=== PATIENT | female | born 1930 | race Caucasian/White ===

== ENCOUNTER → 2016-04-19 | Outpatient (CLI) | payer MEDICARE ==
[2016-04-19 11:43] LABS: Appearance,Urine Clear (Clear); Bilirubin,Urine Negative (Negative); Glucose,Urine (UA) Negative (Negative); Ketones,Urine Negative (Negative); Leukocyte Esterase,Urine Large (Negative); Mucus,Urine Rare /hpf; Nitrite,Urine Negative (Negative); PH, Urine 5.5 (5.0-8.0); Particle Count 2296; Protein,Urine Negative (Negative); Specific Gravity,Urine 1.011 (1.001-1.035); Squamous Epithelial Cell,Urine <1 /hpf (0-4); UA Billing (MACRO vs. MICRO) MICRO; Urobilinogen,Urine <2.0 mg/dL (<2.0); WBC,Urine 14 /hpf (0-5)
[2016-04-19 12:08] LABS: Calcium 9.9 mg/dL (8.4-10.2); Potassium 4.4 mmol/L (3.5-5.1); Uric Acid 6.9 mg/dL (3.7-7.4)
[2016-04-19 14:31] LABS: Aty Lym Flag Slight; CHCM 32.3; HDW 2.53; HGB 13.8 gm/dL (11.4-16.0); MCH 33.9 pg (25.0-35.0); MCHC 32.1 g/dL (31.0-37.0); MCV 105.6 fL (80.0-100.0); Macrocytosis Moderate; Mean Platelet Volume 12.5; RBC 4.07 m/uL (3.80-5.40); RDW 15.6 % (11.5-15.5); WBC (Perox) 9.23
[2016-04-19 15:17] LABS: Add Differential Manual Differential
[2016-04-19 15:20] LABS: Manual Review Performed; Nucleated Red Blood Cells 0 /100 WBC (0-0); Total Cells Counted 100
[2016-04-19 15:21] LABS: Large Platelets Present
== END | disposition home or self-care (01) ==
LOC: LABWHC1 10:41
PROVIDERS: ATTEND Nurse Practitioner Family
DX: N17.9 Acute kidney failure, unspecified (principal); N39.0 Urinary tract infection, site not specified; M10.9 Gout, unspecified
CPT/HCPCS: 36415; 80048; 81001; 82306; 84550; 85025

== ENCOUNTER → 2016-08-23 | Outpatient (CLI) | payer MEDICARE ==
[2016-08-23 12:58] LABS: Anisocytosis Slight; HGB 14.4 gm/dL (11.4-16.0); Macrocytosis Marked; Mean Platelet Volume 10.4; Monocytes % (A) 7 %; RBC 4.25 m/uL (3.80-5.40); RDW 16.4 % (11.5-15.5)
[2016-08-23 13:10] LABS: Calcium 9.8 mg/dL (8.4-10.2); Phosphorous 4.1 mg/dL (2.5-4.5); Potassium 4.4 mmol/L (3.5-5.1); Uric Acid 7.7 mg/dL (3.7-7.4)
[2016-08-23 13:19] LABS: % Iron Saturation 41.2 % (20-50)
[2016-08-23 13:27] LABS: Basophils # (A) 0.1 k/uL (0-0.2); Basophils % (A) 1 %; CH 34.9; CHCM 32.7; Eosinophils # (A) 0.7 k/uL (0-0.7); Eosinophils % (A) 8 %; HCT 45.6 % (34.0-46.0); HDW 2.57; Luc % (Auto) 3; Lymphocytes # (A) 2.5 k/uL (1.0-4.8); Lymphocytes % (A) 27 %; MCH 33.9 pg (25.0-35.0); MCHC 31.7 g/dL (31.0-37.0); MCV 107.1 fL (80.0-100.0); Monocytes # (A) 0.6 k/uL (0-1.0); Neutrophils % (A) 54 %; WBC 9.2 k/uL (3.8-10.6); WBC (Perox) 9.11
[2016-08-23 13:50] LABS: Manual Review Performed
== END | disposition home or self-care (01) ==
LOC: LABWHC1 11:42
PROVIDERS: ATTEND Nurse Practitioner Family
DX: D64.9 Anemia, unspecified (principal); N18.3 Chronic kidney disease, stage 3 (moderate); E55.9 Vitamin D deficiency, unspecified; M10.9 Gout, unspecified; E21.3 Hyperparathyroidism, unspecified; R80.9 Proteinuria, unspecified
CPT/HCPCS: 36415; 80048; 82306; 82728; 83540; 83550; 83735; 83970; 84100; 84550; 85025

== ENCOUNTER → 2016-08-30 | Outpatient (CLI) | payer MEDICARE ==
[2016-08-30 11:50] LABS: Creatinine,Urine Random 68.6 mg/dL
== END ==
LOC: LABWHC1 11:15
PROVIDERS: ATTEND Nurse Practitioner Family
DX: N18.3 Chronic kidney disease, stage 3 (moderate) (principal); D64.9 Anemia, unspecified; E55.9 Vitamin D deficiency, unspecified; M10.9 Gout, unspecified; R80.9 Proteinuria, unspecified; E21.3 Hyperparathyroidism, unspecified
CPT/HCPCS: 82570; 84156

== ENCOUNTER 2016-09-26 11:42 | Inpatient (IN) | payer MEDICARE ==
[2016-09-26] MEDS ORDERED: DILTIAZEM 5 MG/ML 5 ML VIAL IVP STA (11:52)
[2016-09-26] MEDS ORDERED: SODIUM CHLORIDE 0.9% 1,000 ML IV STA (11:52)
--- NOTE | 2016-09-26 12:03 | ED ---
General Adult HPI - General Chief complaint: Arrhythmia/Palpitations Stated complaint: headache,dizzy Time Seen by Provider: 09/26/16 11:51 Source: patient, family, RN notes reviewed, old records reviewed Mode of arrival: wheelchair - History of Present Illness Initial comments: This is an 86-year-old female ER for evaluation palpitations and chest pain. Patient has history of A. fib and heart disease. Patient feels like her heart is racing, does not feel like she is given a passed out. She is complaining of chest pain. Patient's heart continues to be racing, palpitations and feels her breathing or chest, does admit to increased anxiety from her daughter's recent hospital condition. Patient continues with shortness of breath. Again denies fever - Related Data Home Medications Medication Instructions Recorded Confirmed Levothyroxine Sodium [Synthroid] 50 mcg PO AC-BRKFST 05/05/14 09/26/16 Metoprolol Succinate [Toprol XL] 25 mg PO QAM 05/05/14 09/26/16 Atorvastatin Calcium [Lipitor] 40 mg PO PC-SUPPER 10/06/15 09/26/16 Rivaroxaban [Xarelto] 15 mg PO PC-SUPPER 10/06/15 09/26/16 Acetaminophen [Tylenol] 1,000 mg PO Q6H PRN 09/26/16 09/26/16 Allopurinol [Zyloprim] 100 mg PO DAILY 09/26/16 09/26/16 Chlorthalidone [Hygroton] 12.5 mg PO BID 09/26/16 09/26/16 Cholecalciferol [Vitamin D3] 2,000 unit PO DAILY 09/26/16 09/26/16 Otc Eye Moisturizing Drop 1 drop BOTH EYES TID 09/26/16 09/26/16 Otc Eye Ointment 1 applic BOTH EYES BID 09/26/16 09/26/16 cloNIDine 0.2 MG/24HR PATCH 1 patch TRANSDERM PEARSON 09/26/16 09/26/16 [Catapres-TTS] Allergies Allergy/AdvReac Type Severity Reaction Status Date / Time cephalexin monohydrate Allergy Rash/Hives Verified 09/26/16 11:48 [From Keflex] Penicillins Allergy Swelling Verified 09/26/16 11:48 sulfamethoxazole Allergy Nausea & Verified 09/26/16 11:48 [From Bactrim] Vomiting trimethoprim [From Bactrim] Allergy Nausea & Verified 09/26/16 11:48 Vomiting Review of Systems ROS Statement: Those systems with pertinent positive or pertinent negative responses have been documented in the HPI. ROS Other: All systems not noted in ROS Statement are negative. Past Medical History Past Medical History: Atrial Fibrillation, Asthma, Deep Vein Thrombosis (DVT), GERD/Reflux, Hyperlipidemia, Hypertension, Osteoarthritis (OA), Thyroid Disorder Additional Past Medical History / Comment(s): past falls, uti,hemorrhoids, hammer toes,enlarged heart, glaucoma, sees dr for rt eye (retina),seasonal allergies, ulcer 40 years ago, [place]. pts grand daughter has factor 5- pt never was tested History of Any Multi-Drug Resistant Organisms: None Reported Past Surgical History: Bladder Surgery, Tonsillectomy Additional Past Surgical History / Comment(s): blood clot removed rt leg, vein stripping, colonoscopy, bladder suspension, lashay cataracts removed Past Anesthesia/Blood Transfusion Reactions: No Reported Reaction Past Psychological History: No Psychological Hx Reported Smoking Status: Never smoker Past Alcohol Use History: None Reported Past Drug Use History: None Reported - Past Family History Mother Additional Family Medical History / Comment(s): mom in childbirth, hemmorraged... pt's granddaughter has factor five Father Family Medical History: Cancer Additional Family Medical History / Comment(s): lung cancer General Exam General appearance: alert, in no apparent distress Head exam: Present: atraumatic, normocephalic, normal inspection Eye exam: Present: normal appearance, PERRL, EOMI. Absent: scleral icterus, conjunctival injection, periorbital swelling ENT exam: Present: normal exam, mucous membranes moist Neck exam: Present: normal inspection. Absent: tenderness, meningismus, lymphadenopathy Respiratory exam: Present: normal lung sounds bilaterally. Absent: respiratory distress, wheezes, rales, rhonchi, stridor Cardiovascular Exam: Present: tachycardia, irregular rhythm, normal heart sounds. Absent: systolic murmur, diastolic murmur, rubs, gallop, clicks GI/Abdominal exam: Present: soft, normal bowel sounds. Absent: distended, tenderness, guarding, rebound, rigid Extremities exam: Present: normal inspection, full ROM, normal capillary refill. Absent: tenderness, pedal edema, joint swelling, calf tenderness Back exam: Present: normal inspection Neurological exam: Present: alert, oriented X3, CN II-XII intact Psychiatric exam: Present: normal affect, normal mood Skin exam: Present: warm, dry, intact, normal color. Absent: rash Course Vital Signs 09/26/16 09/26/16 11:44 12:43 Temperature 98.4 F Pulse Rate 123 H 111 H Respiratory 20 18 Rate Blood Pressure 145/73 158/90 O2 Sat by Pulse 99 97 Oximetry - Reevaluation(s) Reevaluation #1: 09/26/16 13:21 Patient feels better with her control though still feel short of breath and feels like her heart is beating hard EKG Findings - EKG Comments: EKG Findings:: EKG shows A. fib with RVR at 104, QRS 86, QTC 407 Medical Decision Making - Medical Decision Making [id number] ER for evaluation regarding chest pain. Patient to be admitted for chest pain observation, cardiac and trending of troponins. Patient also had A. fib with RVR will accomplish rate control, patient is already on anticoagulation, patient also with pneumonia on x-ray which we'll treat - Lab Data Result diagrams: 09/26/16 12:06 09/26/16 12:06 Lab Results 09/26/16 09/26/16 09/26/16 Range/Units 12:06 12:06 12:06 WBC 12.3 H (3.8-10.6) k/uL RBC 4.38 (3.80-5.40) m/uL Hgb 15.3 (11.4-16.0) gm/dL Hct 44.6 (34.0-46.0) % MCV 101.8 H D (80.0-100.0) fL MCH 34.9 (25.0-35.0) pg MCHC 34.3 (31.0-37.0) g/dL RDW 16.0 H (11.5-15.5) % Plt Count 264 (150-450) k/uL Neutrophils % 70 % Lymphocytes % 18 % Monocytes % 7 % Eosinophils % 3 % Basophils % 0 % Neutrophils # 8.5 H (1.3-7.7) k/uL Lymphocytes # 2.3 (1.0-4.8) k/uL Monocytes # 0.8 (0-1.0) k/uL Eosinophils # 0.4 (0-0.7) k/uL Basophils # 0.1 (0-0.2) k/uL Macrocytosis Slight PT (9.0-12.0) sec INR (<1.2) APTT (22.0-30.0) sec Sodium 140 (137-145) mmol/L Potassium 4.0 (3.5-5.1) mmol/L Chloride 104 (98-107) mmol/L Carbon Dioxide 24 (22-30) mmol/L Anion Gap 12 mmol/L BUN 27 H (7-17) mg/dL Creatinine 1.15 H (0.52-1.04) mg/dL Est GFR (MDRD) Af Amer 54 (>60 ml/min/1.73 sqM) Est GFR (MDRD) Non-Af 45 (>60 ml/min/1.73 sqM) Glucose 132 H (74-99) mg/dL Calcium 10.3 H (8.4-10.2) mg/dL Phosphorus 2.1 L (2.5-4.5) mg/dL Magnesium 1.8 (1.6-2.3) mg/dL Total Bilirubin 0.8 (0.2-1.3) mg/dL AST 26 (14-36) U/L ALT 39 (9-52) U/L Alkaline Phosphatase 114 (38-126) U/L Total Creatine Kinase 35 (30-135) U/L CK-MB (CK-2) 0.5 (0.0-2.4) ng/mL CK-MB (CK-2) Rel Index 1.4 Troponin I <0.012 (0.000-0.034) ng/mL Total Protein 8.2 (6.3-8.2) g/dL Albumin 4.5 (3.5-5.0) g/dL 09/26/16 Range/Units 12:06 WBC (3.8-10.6) k/uL RBC (3.80-5.40) m/uL Hgb (11.4-16.0) gm/dL Hct (34.0-46.0) % MCV (80.0-100.0) fL MCH (25.0-35.0) pg MCHC (31.0-37.0) g/dL RDW (11.5-15.5) % Plt Count (150-450) k/uL Neutrophils % % Lymphocytes % % Monocytes % % Eosinophils % % Basophils % % Neutrophils # (1.3-7.7) k/uL Lymphocytes # (1.0-4.8) k/uL Monocytes # (0-1.0) k/uL Eosinophils # (0-0.7) k/uL Basophils # (0-0.2) k/uL Macrocytosis PT 10.9 (9.0-12.0) sec INR 1.1 (<1.2) APTT 24.0 (22.0-30.0) sec Sodium (137-145) mmol/L Potassium (3.5-5.1) mmol/L Chloride (98-107) mmol/L Carbon Dioxide (22-30) mmol/L Anion Gap mmol/L BUN (7-17) mg/dL Creatinine (0.52-1.04) mg/dL Est GFR (MDRD) Af Amer (>60 ml/min/1.73 sqM) Est GFR (MDRD) Non-Af (>60 ml/min/1.73 sqM) Glucose (74-99) mg/dL Calcium (8.4-10.2) mg/dL Phosphorus (2.5-4.5) mg/dL Magnesium (1.6-2.3) mg/dL Total Bilirubin (0.2-1.3) mg/dL AST (14-36) U/L ALT (9-52) U/L Alkaline Phosphatase (38-126) U/L Total Creatine Kinase (30-135) U/L CK-MB (CK-2) (0.0-2.4) ng/mL CK-MB (CK-2) Rel Index Troponin I (0.000-0.034) ng/mL Total Protein (6.3-8.2) g/dL Albumin (3.5-5.0) g/dL - Radiology Data Radiology results: report reviewed (Chest x-ray is positive for likely pneumonia ), image reviewed Disposition Clinical Impression: Pre-syncope, Atrial fibrillation with RVR, Community acquired bacterial pneumonia Disposition: ADMITTED IP TO THIS HOSP Condition: Fair Referrals: Melissa Song MD [Primary Care Provider] - 1-2 days
[2016-09-26 12:29] LABS: Basophils # (A) 0.1 k/uL (0-0.2); Basophils % (A) 0 %; CHCM 33.8; Macrocytosis Slight; Monocytes % (A) 7 %
[2016-09-26 12:30] LABS: INR 1.1 (<1.2); Prothrombin Time 10.9 sec (9.0-12.0)
[2016-09-26 12:33] LABS: Calcium 10.3 mg/dL (8.4-10.2); Magnesium 1.8 mg/dL (1.6-2.3); Phosphorous 2.1 mg/dL (2.5-4.5); Total Bilirubin 0.8 mg/dL (0.2-1.3); Total Protein 8.2 g/dL (6.3-8.2)
--- NOTE | 2016-09-26 12:33 | XR ---
EXAMINATION TYPE: XR chest 2V DATE OF EXAM: 09/26/2016 COMPARISON: 10/06/2015 TECHNIQUE: PA and lateral views submitted. HISTORY: Dizziness weakness FINDINGS: The lungs are clear and there is no pneumothorax, pleural effusion, or focal pneumonia. Heart is en larged. There is prominence of the hilum bilaterally which may related the pulmonary arteries. There is left lower lobe consolidation and small effusion. Arthropathy of the shoulders. Mild central venou s congestion not excluded. IMPRESSION: 1. Left lower lobe consolidation with tiny effusion. The heart is enlarged and there is question bila teral hilar enlargement. Correlate for mild central venous congestion. Follow-up CT scan could be obt ained as warranted..
[2016-09-26 12:41] LABS: CH 34.3; Eosinophils # (A) 0.4 k/uL (0-0.7); Eosinophils % (A) 3 %; HCT 44.6 % (34.0-46.0); HDW 2.68; HGB 15.3 gm/dL (11.4-16.0); Luc # (Auto) 0.28; Luc % (Auto) 2; Lymphocytes # (A) 2.3 k/uL (1.0-4.8); Lymphocytes % (A) 18 %; MCH 34.9 pg (25.0-35.0); MCHC 34.3 g/dL (31.0-37.0); Monocytes # (A) 0.8 k/uL (0-1.0); Neutrophils # (A) 8.5 k/uL (1.3-7.7); Neutrophils % (A) 70 %; RBC 4.38 m/uL (3.80-5.40); WBC 12.3 k/uL (3.8-10.6); WBC (Perox) 12.05
[2016-09-26 12:44] LABS: MCV 101.8 fL (80.0-100.0)
[2016-09-26 12:58] LABS: Creatine Kinase 35 U/L (30-135)
[2016-09-26] MEDS ORDERED: LEVOFLOXACIN 750MG-D5W PMX 750 MG in DEXTROSE/WATER 1 150ML.BAG IVPB STA (13:02)
[2016-09-26 13:11] LABS: Creatine Kinase MB 0.5 ng/mL (0.0-2.4); Troponin I <0.012 ng/mL (0.000-0.034)
[2016-09-26] MEDS ORDERED: PNEUMONIA PROTOCOL UTILIZED 1 EACH MISC PO PRN (13:16)
[2016-09-26] MEDS ORDERED: DILTIAZEM 125 MG in SODIUM CHLORIDE 0.9% 100 ML IV ONE (13:16)
[2016-09-26] MEDS ORDERED: IPRATROPIUM-ALBUTEROL 3 ML NEB INHALATION PRN (13:16)
[2016-09-26] MEDS ORDERED: NITROGLYCERIN SL TABS 0.4 MG TAB SUBLINGUAL PRN (13:16)
[2016-09-26 13:48] LABS: Appearance,Urine Clear (Clear); Bilirubin,Urine Negative (Negative); Glucose,Urine (UA) Negative (Negative); Ketones,Urine Negative (Negative); Leukocyte Esterase,Urine Moderate (Negative); Mucus,Urine Rare /hpf; Nitrite,Urine Negative (Negative); Particle Count 1674; Protein,Urine Negative (Negative); RBC,Urine <1 /hpf (0-5); Specific Gravity,Urine 1.008 (1.001-1.035); UA Billing (MACRO vs. MICRO) MICRO; Urobilinogen,Urine <2.0 mg/dL (<2.0); WBC,Urine 4 /hpf (0-5)
[2016-09-26] MEDS: SODIUM CHLORIDE 0.9% 1,000 ML IV SCH (14:34)
[2016-09-26 19:52] LABS: Creatine Kinase 28 U/L (30-135)
[2016-09-26 20:06] LABS: Creatine Kinase MB 0.5 ng/mL (0.0-2.4); Troponin I <0.012 ng/mL (0.000-0.034)
[2016-09-26] MEDS: ARTIFICIAL TEARS-HYPROMELLOSE DROPS 15 ML BTL BOTH EYES SCH (20:53)
[2016-09-26] MEDS: ARTIFICIAL TEARS OINTMENT 3.5 GM TUBE BOTH EYES SCH (20:54)
[2016-09-26] MEDS: amLODIPine 5 MG TAB PO SCH (20:54)
[2016-09-26] MEDS: CHLORTHALIDONE 25 MG TAB PO SCH (20:54)
[2016-09-26] MEDS: ACETAMINOPHEN TAB 500 MG TAB PO PRN (23:12)
[2016-09-27 00:48] LABS: Creatine Kinase 139 U/L (30-135)
[2016-09-27] MEDS: SODIUM CHLORIDE 0.9% 1,000 ML IV SCH ×3 (00:48→19:58)
[2016-09-27 01:02] LABS: Creatine Kinase MB 2.1 ng/mL (0.0-2.4); Troponin I <0.012 ng/mL (0.000-0.034)
[2016-09-27] MEDS: LEVOTHYROXINE 50 MCG TAB PO SCH (06:48)
--- NOTE | 2016-09-27 07:13 | XR ---
EXAMINATION TYPE: XR chest 2V DATE OF EXAM: 09/27/2016 COMPARISON: 09/26/2016 HISTORY: Shortness of breath TECHNIQUE: Frontal and lateral views of the chest are obtained. FINDINGS: Scattered senescent parenchymal changes noted. Hyperinflation compatible with COPD. No evidence for infiltrate. No evidence for atelectasis. Heart size is stable. Mediastinal structures are stable and grossly unremarkable. No evidence for hilar prominence. Degenerative changes dorsal spine. IMPRESSION: 1. No evidence for acute pulmonary disease.
[2016-09-27] MEDS: amLODIPine 5 MG TAB PO SCH ×2 (07:44→19:57)
[2016-09-27] MEDS: ASPIRIN 325 MG TAB PO SCH (07:45)
[2016-09-27] MEDS: ALLOPURINOL 100 MG TAB PO SCH (07:45)
[2016-09-27] MEDS: ARTIFICIAL TEARS OINTMENT 3.5 GM TUBE BOTH EYES SCH ×2 (07:45→19:58)
[2016-09-27] MEDS: ARTIFICIAL TEARS-HYPROMELLOSE DROPS 15 ML BTL BOTH EYES SCH ×3 (07:45→19:56)
[2016-09-27] MEDS: CHLORTHALIDONE 25 MG TAB PO SCH ×2 (07:45→19:57)
[2016-09-27 08:51] LABS: Anisocytosis Slight; Basophils # (A) 0.1 k/uL (0-0.2); Basophils % (A) 1 %; CH 34.6; CHCM 32.8; Eosinophils # (A) 0.5 k/uL (0-0.7); Eosinophils % (A) 6 %; HCT 40.7 % (34.0-46.0); HGB 13.5 gm/dL (11.4-16.0); Luc # (Auto) 0.16; Luc % (Auto) 2; Lymphocytes # (A) 1.9 k/uL (1.0-4.8); Lymphocytes % (A) 21 %; MCHC 33.1 g/dL (31.0-37.0); MCV 105.7 fL (80.0-100.0); Macrocytosis Moderate; Mean Platelet Volume 11.8; Monocytes # (A) 0.8 k/uL (0-1.0); Monocytes % (A) 9 %; Neutrophils # (A) 5.5 k/uL (1.3-7.7); Neutrophils % (A) 62 %; RBC 3.85 m/uL (3.80-5.40); RDW 16.4 % (11.5-15.5); WBC 8.9 k/uL (3.8-10.6); WBC (Perox) 9.02
[2016-09-27 09:04] LABS: Calcium 9.2 mg/dL (8.4-10.2); Total Bilirubin 0.7 mg/dL (0.2-1.3); Total Protein 6.3 g/dL (6.3-8.2)
--- NOTE | 2016-09-27 09:31 | P.HPIM ---
History of Present Illness H&P Date: 09/27/16 Chief Complaint: Dizziness This is a 86-year-old female, a patient of Dr. Song. She has a known past medical history of atrial fibrillation and is on Xarelto for anticoagulation. She also has a history of hypothyroidism, hyperlipidemia, hypertension, asthma and lower extremity DVT. Patient reports that she's been having dizziness and racing heart and that brought her into the emergency room. Her symptoms started Saturday night patient was complaining of dizziness went to sleep for the evening woke again on Saturday morning having dizziness and symptoms of racing heart. Her daughter talked her into coming into the emergency room. Patient was found to have atrial fibrillation with rapid ventricular response. Her heart rate got as high as 123. She was started on a Cardizem drip. And continued on her Xarelto for anticoagulation. Heart rate is now controlled in the 70s and 80s. Cardiology is consulted. She was admitted to the sixth floor. Initial chest x-ray had showed a left lower lobe consolidation with tiny effusion. She was started on Levaquin for possible pneumonia. Chest x- ray from this morning was negative. Her white count was elevated initially at 12.3. Troponins are negative 3 sets. Urinalysis is slightly dirty awaiting urine culture. Patient is a segment for any urinary symptoms. Patient denies any fevers chills or sweats. Denies any cough. Denies any nausea or vomiting. Denies any chest pain. Does admit to having some shortness of breath but her heart was beating fast. Denies any burning with urination. As noted that last week patient was off of her Xarelto for about 3 days for an eye procedure. Review of Systems Please refer to HPI otherwise unremarkable Past Medical History Past Medical History: Atrial Fibrillation, Asthma, Deep Vein Thrombosis (DVT), GERD/Reflux, Hyperlipidemia, Hypertension, Osteoarthritis (OA), Thyroid Disorder Additional Past Medical History / Comment(s): past falls, uti,hemorrhoids, hammer toes,enlarged heart, glaucoma, sees for rt eye (retina),seasonal allergies, ulcer 40 years ago, [place]. pts grand daughter has factor 5- pt never was tested, uti,djd. History of Any Multi-Drug Resistant Organisms: None Reported Past Surgical History: Bladder Surgery, Tonsillectomy Additional Past Surgical History / Comment(s): blood clot removed rt leg, vein stripping, colonoscopy, bladder suspension, lashay cataracts removed, lashay eye lift sx Past Anesthesia/Blood Transfusion Reactions: No Reported Reaction Smoking Status: Never smoker - Past Family History Mother Additional Family Medical History / Comment(s): mom in childbirth, hemmorraged... pt's granddaughter has factor five Father Family Medical History: Cancer Additional Family Medical History / Comment(s): lung cancer Medications and Allergies Home Medications Medication Instructions Recorded Confirmed Type Levothyroxine Sodium [Synthroid] 50 mcg PO AC-BRKFST 05/05/14 09/26/16 History Atorvastatin Calcium [Lipitor] 40 mg PO PC-SUPPER 10/06/15 09/26/16 History Rivaroxaban [Xarelto] 15 mg PO PC-SUPPER 10/06/15 09/26/16 History Acetaminophen [Tylenol] 1,000 mg PO Q6H PRN 09/26/16 09/26/16 History Allopurinol [Zyloprim] 100 mg PO DAILY 09/26/16 09/26/16 History Chlorthalidone [Hygroton] 12.5 mg PO BID 09/26/16 09/26/16 History Cholecalciferol [Vitamin D3] 2,000 unit PO DAILY 09/26/16 09/26/16 History Otc Eye Moisturizing Drop 1 drop BOTH EYES TID 09/26/16 09/26/16 History Otc Eye Ointment 1 applic BOTH EYES BID 09/26/16 09/26/16 History amLODIPine [Norvasc] 5 mg PO BID 09/26/16 09/26/16 History cloNIDine 0.2 MG/24HR PATCH 1 patch TRANSDERM PEARSON 09/26/16 09/26/16 History [Catapres-TTS] Allergies Allergy/AdvReac Type Severity Reaction Status Date / Time cephalexin monohydrate Allergy Rash/Hives Verified 09/26/16 11:48 [From Keflex] Penicillins Allergy Swelling Verified 09/26/16 11:48 sulfamethoxazole Allergy Nausea & Verified 09/26/16 11:48 [From Bactrim] Vomiting trimethoprim [From Bactrim] Allergy Nausea & Verified 09/26/16 11:48 Vomiting Physical Exam Vitals: Vital Signs Temp Pulse Pulse Resp BP BP Pulse Ox 09/27/16 08:00 97.9 F 95 16 158/74 98 09/27/16 04:00 90 16 156/67 95 09/27/16 00:00 98.0 F 87 16 167/67 98 09/26/16 20:00 95 16 151/70 99 09/26/16 16:00 96.1 F L 100 18 144/68 98 09/26/16 15:59 96.1 F L 100 16 144/68 98 09/26/16 14:31 83 18 159/73 97 09/26/16 14:01 92 18 158/70 98 09/26/16 13:55 100 18 162/92 97 09/26/16 12:43 111 H 18 158/90 97 09/26/16 11:44 98.4 F 123 H 20 145/73 99 Intake and Output 09/26/16 09/27/16 09/27/16 22:59 06:59 14:59 Intake Total 236 800 Balance 236 800 Intake: IV 800 Sodium Chloride 0.9% 1, 800 000 ml @ 100 mls/hr IV . Q10H DENAE Rx#:[id number] Oral 236 Head normocephalic Neck supple Lungs clear to auscultation bilaterally no wheezing or crackles Heart irregular rhythm. A. fib on monitor Abdomen is soft nontender nondistended positive bowel sounds no hepatosplenomegaly Extremities no edema Neuro alert and orientated to 3 Results CBC & Chem 7: 09/27/16 06:04 09/26/16 12:06 Labs: Abnormal Lab Results - Last 24 Hours (Table) 09/26/16 09/26/16 09/26/16 Range/Units 12:06 12:06 12:06 WBC 12.3 H (3.8-10.6) k/uL MCV 101.8 H D (80.0-100.0) fL RDW 16.0 H (11.5-15.5) % Neutrophils # 8.5 H (1.3-7.7) k/uL BUN 27 H (7-17) mg/dL Creatinine 1.15 H (0.52-1.04) mg/dL Glucose 132 H (74-99) mg/dL Calcium 10.3 H (8.4-10.2) mg/dL Phosphorus 2.1 L (2.5-4.5) mg/dL Total Creatine Kinase (30-135) U/L Ur Leukocyte Esterase Moderate H (Negative) Urine Mucus Rare H (None) /hpf 09/26/16 09/27/16 09/27/16 Range/Units 19:01 00:07 06:04 WBC (3.8-10.6) k/uL MCV 105.7 H (80.0-100.0) fL RDW 16.4 H (11.5-15.5) % Neutrophils # (1.3-7.7) k/uL BUN (7-17) mg/dL Creatinine (0.52-1.04) mg/dL Glucose (74-99) mg/dL Calcium (8.4-10.2) mg/dL Phosphorus (2.5-4.5) mg/dL Total Creatine Kinase 28 L 139 H (30-135) U/L Ur Leukocyte Esterase (Negative) Urine Mucus (None) /hpf Microbiology - Last 24 Hours (Table) 09/26/16 12:06 Urine Culture - Preliminary Urine,Voided Thrombosis Risk Factor Assmnt - Choose All That Apply Any of the Below Risk Factors Present?: Yes Each Factor Represents 1 point: Obesity (BMI >25), Serious lung disease incl. pneumonia (< 1month) Other Risk Factors: Yes Each Risk Factor Represents 3 Points: Age 75 years or older, History of DVT/PE Other congenital or acquired thrombophilia - If yes, enter type in comment: No Thrombosis Risk Factor Assessment Total Risk Factor Score: 8 Thrombosis Risk Factor Assessment Level: High Risk Assessment and Plan Plan: 1. Atrial fibrillation with rapid ventricular response: Patient has history of atrial fibrillation. Continue the Xarelto for anticoagulation. She's been started on Cardizem drip for rate control. Cardiology has been consulted. Check thyroid levels 2. Possible community-acquired pneumonia: Patient started on Levaquin. Initial chest x-ray had shown a left lower lobe consolidation with tiny effusion. Repeat chest x-ray for today is negative. White count has normalized 3. Hypothyroidism continue Synthroid. Check thyroid levels 4. Essential hypertension: Blood pressure stable. Continue Norvasc and clonidine 5. History of chronic kidney disease stage IIIB. Follows with nephrology outpatient 6. Hyperlipidemia GI prophylaxis Pepcid and DVT prophylaxis Xarelto Time with Patient: Greater than 30 (Greater than 50% of the total time spent in counseling and coordination of care.I performed an examination of the patient and discussed their management with the physician [employer]. I have reviewed the Physician [employer] Spotter's notes and agree with the documented findings and plan of care)
--- NOTE | 2016-09-27 11:46 | P.CRDCN ---
History of Present Illness Consult date: 09/27/16 Reason for Consult (text): Afib w/RVR Chief complaint: palpitations, shortness of breath History of present illness: This is a pleasant 86-year-old female patient who follows with Dr. Faulkner. She has a known history of atrial fibrillation, hypertension and hyperlipidemia. Presented to the emergency department with complaints of feeling her heart racing, palpitations and shortness of breath. She was found to be in atrial fibrillation with rapid ventricular response. She was initiated on a Cardizem drip. She was also found to have a left lower lobe consolidation with tiny effusion and elevated white count at 12.3. She was also started on IV antibiotics. She remains on Cardizem drip at 5 mg an hour with a controlled ventricular response. Upon examination, she is feeling quite a bit better. Thyroid function studies were normal this morning. She denies current complaints of shortness of breath, palpitations, dizziness, lightheadedness, chest discomfort or edema. Past Medical History Past Medical History: Atrial Fibrillation, Asthma, Deep Vein Thrombosis (DVT), GERD/Reflux, Hyperlipidemia, Hypertension, Osteoarthritis (OA), Thyroid Disorder Additional Past Medical History / Comment(s): past falls, uti,hemorrhoids, hammer toes,enlarged heart, glaucoma, sees for rt eye (retina),seasonal allergies, ulcer 40 years ago, rosecea. pts grand daughter has factor 5- pt never was tested, uti,djd. History of Any Multi-Drug Resistant Organisms: None Reported Past Surgical History: Bladder Surgery, Tonsillectomy Additional Past Surgical History / Comment(s): blood clot removed rt leg, vein stripping, colonoscopy, bladder suspension, lashay cataracts removed, lashay eye lift sx Past Anesthesia/Blood Transfusion Reactions: No Reported Reaction Smoking Status: Never smoker - Past Family History Mother Additional Family Medical History / Comment(s): mom in childbirth, hemmorraged... pt's granddaughter has factor five Father Family Medical History: Cancer Additional Family Medical History / Comment(s): lung cancer Medications and Allergies Home Medications Medication Instructions Recorded Confirmed Type Levothyroxine Sodium [Synthroid] 50 mcg PO AC-BRKFST 05/05/14 09/26/16 History Atorvastatin Calcium [Lipitor] 40 mg PO PC-SUPPER 10/06/15 09/26/16 History Rivaroxaban [Xarelto] 15 mg PO PC-SUPPER 10/06/15 09/26/16 History Acetaminophen [Tylenol] 1,000 mg PO Q6H PRN 09/26/16 09/26/16 History Allopurinol [Zyloprim] 100 mg PO DAILY 09/26/16 09/26/16 History Chlorthalidone [Hygroton] 12.5 mg PO BID 09/26/16 09/26/16 History Cholecalciferol [Vitamin D3] 2,000 unit PO DAILY 09/26/16 09/26/16 History Otc Eye Moisturizing Drop 1 drop BOTH EYES TID 09/26/16 09/26/16 History Otc Eye Ointment 1 applic BOTH EYES BID 09/26/16 09/26/16 History amLODIPine [Norvasc] 5 mg PO BID 09/26/16 09/26/16 History cloNIDine 0.2 MG/24HR PATCH 1 patch TRANSDERM PEARSON 09/26/16 09/26/16 History [Catapres-TTS] Allergies Allergy/AdvReac Type Severity Reaction Status Date / Time cephalexin monohydrate Allergy Rash/Hives Verified 09/26/16 11:48 [From Keflex] Penicillins Allergy Swelling Verified 09/26/16 11:48 sulfamethoxazole Allergy Nausea & Verified 09/26/16 11:48 [From Bactrim] Vomiting trimethoprim [From Bactrim] Allergy Nausea & Verified 09/26/16 11:48 Vomiting Physical Exam Vitals: Vital Signs Temp Pulse Pulse Resp BP BP Pulse Ox 09/27/16 08:00 97.9 F 95 16 158/74 98 09/27/16 04:00 90 16 156/67 95 09/27/16 00:00 98.0 F 87 16 167/67 98 09/26/16 20:00 95 16 151/70 99 09/26/16 16:00 96.1 F L 100 18 144/68 98 09/26/16 15:59 96.1 F L 100 16 144/68 98 09/26/16 14:31 83 18 159/73 97 09/26/16 14:01 92 18 158/70 98 09/26/16 13:55 100 18 162/92 97 09/26/16 12:43 111 H 18 158/90 97 09/26/16 11:44 98.4 F 123 H 20 145/73 99 Intake and Output 09/26/16 09/27/16 09/27/16 22:59 06:59 14:59 Intake Total 236 800 Balance 236 800 Intake: IV 800 Sodium Chloride 0.9% 1, 800 000 ml @ 100 mls/hr IV . Q10H [facility] Rx#:[id number] Oral 236 PHYSICAL EXAMINATION: HEENT: Head is atraumatic, normocephalic. Pupils equal, round. Neck is supple. There is no elevated jugular venous pressure. HEART EXAMINATION: Heart sounds irregularly irregular, S1 and S2 normal. No murmur or gallop heard. CHEST EXAMINATION: Lungs are clear to auscultation and precussion. No chest wall tenderness is noted on palpation or with deep breathing. ABDOMEN: Soft, nontender. Bowel sounds are heard. No organomegaly noted. EXTREMITIES: 2+ peripheral pulses with no evidence of peripheral edema and no calf tenderness noted. NEUROLOGIC patient is awake, alert and oriented x3. . Results 09/27/16 06:04 09/27/16 06:04 Cardiac Enzymes 09/26/16 09/26/16 09/26/16 Range/Units 12:06 12:06 19:01 AST 26 (14-36) U/L CK-MB (CK-2) 0.5 0.5 (0.0-2.4) ng/mL Troponin I <0.012 <0.012 (0.000-0.034) ng/mL 09/27/16 09/27/16 Range/Units 00:07 06:04 AST 23 (14-36) U/L CK-MB (CK-2) 2.1 (0.0-2.4) ng/mL Troponin I <0.012 (0.000-0.034) ng/mL Coagulation 09/26/16 Range/Units 12:06 PT 10.9 (9.0-12.0) sec APTT 24.0 (22.0-30.0) sec Lipids 09/27/16 Range/Units 06:04 Triglycerides 78 (<150) mg/dL Cholesterol 142 (<200) mg/dL HDL Cholesterol 58 (40-60) mg/dL CBC 09/26/16 09/27/16 Range/Units 12:06 06:04 WBC 12.3 H 8.9 (3.8-10.6) k/uL RBC 4.38 3.85 (3.80-5.40) m/uL Hgb 15.3 13.5 (11.4-16.0) gm/dL Hct 44.6 40.7 (34.0-46.0) % Plt Count 264 195 (150-450) k/uL Comprehensive Metabolic Panel 09/26/16 09/27/16 Range/Units 12:06 06:04 Sodium 140 142 (137-145) mmol/L Potassium 4.0 4.0 (3.5-5.1) mmol/L Chloride 104 111 H (98-107) mmol/L Carbon Dioxide 24 23 (22-30) mmol/L BUN 27 H 21 H (7-17) mg/dL Creatinine 1.15 H 1.07 H (0.52-1.04) mg/dL Glucose 132 H 102 H (74-99) mg/dL Calcium 10.3 H 9.2 (8.4-10.2) mg/dL AST 26 23 (14-36) U/L ALT 39 34 (9-52) U/L Alkaline Phosphatase 114 85 (38-126) U/L Total Protein 8.2 6.3 (6.3-8.2) g/dL Albumin 4.5 3.3 L (3.5-5.0) g/dL Current Medications Generic Name Dose Route Start Last Admin Trade Name Freq PRN Reason Stop Dose Admin Acetaminophen 1,000 mg 09/26/16 19:58 09/26/16 23:12 Tylenol Tab PO 1,000 mg Q6H PRN Administration Pain Albuterol/Ipratropium 3 ml 09/26/16 13:16 Duoneb 0.5 Mg-3 Mg/3 Ml Soln INHALATION RT-Q4H PRN shortness of breath Allopurinol 100 mg 09/27/16 09:00 09/27/16 07:45 Zyloprim PO 100 mg DAILY [facility] Administration Amlodipine Besylate 5 mg 09/26/16 21:00 09/27/16 07:44 Norvasc PO 5 mg BID DENAE Administration Artificial Tears 1 drops 09/26/16 22:00 09/27/16 07:45 Artificial Tear Drops BOTH EYES 1 drops TID DENAE Administration Aspirin 325 mg 09/27/16 09:00 09/27/16 07:45 Aspirin PO 325 mg DAILY DENAE Administration Atorvastatin Calcium 40 mg 09/27/16 18:30 Lipitor PO PC-SUPPER [facility] Chlorthalidone 12.5 mg 09/26/16 21:00 09/27/16 07:45 Hygroton PO 12.5 mg BID DENAE Administration Cholecalciferol 2,000 unit 09/27/16 12:00 Vitamin D3 PO 1200 DE[facility] Clonidine HCl 1 patch 09/30/16 09:00 Catapres-Tts 0.2mg Patch TRANSDERM Pearson@0900 [facility] Famotidine 20 mg 09/28/16 09:00 Pepcid PO DAILY DE[facility] Levofloxacin 750 mg/ IV 150 mls @ 100 mls/hr 09/27/16 13:00 Solution IVPB 10/09/16 13:01 Q24H [facility] Sodium Chloride 1,000 mls @ 100 mls/hr 09/26/16 13:30 09/27/16 07:45 Saline 0.9% IV 100 mls/hr .Q10H [facility] Administration Levothyroxine Sodium 50 mcg 09/27/16 07:30 09/27/16 06:48 Synthroid PO 50 mcg AC-BRKFST [facility] Administration Metoprolol Tartrate 25 mg 09/27/16 11:15 Lopressor PO BID [facility] Miscellaneous Information 1 each 09/26/16 13:16 Pneumonia Protocol Utilized PO ONCE PRN Per Protocol Multi-Ingred Cream/Lotion/Oil/Oint 1 applic 09/26/16 21:00 09/27/16 07:45 Lubrifresh Pm Ointment BOTH EYES 1 applic BID [facility]NA[facility] Administration Nitroglycerin 0.4 mg 09/26/16 13:16 Nitrostat SUBLINGUAL Q5M PRN Chest Pain Rivaroxaban 15 mg 09/27/16 20:55 Xarelto PO PC-SUPPER [facility] Intake and Output 09/26/16 09/27/16 09/27/16 22:59 06:59 14:59 Intake Total 236 800 Balance 236 800 Intake: IV 800 Sodium Chloride 0.9% 1, 800 000 ml @ 100 mls/hr IV . Q10H [facility] Rx#:[id number] Oral 236 09/27/16 06:04 09/27/16 06:04 Assessment and Plan Plan: Assessment and plan #1 chronic atrial fibrillation with rapid ventricular response, rate currently controlled, patient is anticoagulated on Xarelto #2 left Lower lobe pneumonia #3 hypertension #4 hyperlipidemia #5 hypothyroidism, thyroid function tests currently normal, on levothyroxine Patient did have an echocardiogram done at the office just over one week ago, the luminary report shows normal LV systolic function. Continue anticoagulation with Xarelto. We will stop Cardizem drip and start the patient on metoprolol 25 mg by mouth twice a day. Further recommendations to follow. LABORER PIE BAKERY note has been reviewed, I agree with a documented findings and plan of care. Patient was seen and examined.
[2016-09-27] MEDS: METOPROLOL TARTRATE 25 MG TAB PO SCH ×2 (11:49→19:57)
[2016-09-27] MEDS: CHOLECALCIFEROL 1,000 UNIT TAB PO SCH (11:50)
[2016-09-27] MEDS ORDERED: LEVOFLOXACIN 750MG-D5W PMX 750 MG in DEXTROSE/WATER 1 150ML.BAG IVPB SCH (13:00)
[2016-09-27] MEDS: ATORVASTATIN 40 MG TAB PO SCH (17:00)
[2016-09-27] MEDS ORDERED: RIVAROXABAN 15 MG TAB PO SCH (18:30)
[2016-09-27] MEDS: RIVAROXABAN 15 MG TAB PO SCH (19:57)
[2016-09-28] MEDS: SODIUM CHLORIDE 0.9% 1,000 ML IV SCH ×2 (06:26→14:59)
[2016-09-28] MEDS: LEVOTHYROXINE 50 MCG TAB PO SCH (06:29)
[2016-09-28 06:42] LABS: Anisocytosis Slight; Basophils # (A) 0.1 k/uL (0-0.2); Basophils % (A) 1 %; CH 34.7; Eosinophils # (A) 0.6 k/uL (0-0.7); Eosinophils % (A) 6 %; HCT 40.5 % (34.0-46.0); HDW 2.57; HGB 13.4 gm/dL (11.4-16.0); Luc # (Auto) 0.17; Luc % (Auto) 2; Lymphocytes # (A) 1.8 k/uL (1.0-4.8); Lymphocytes % (A) 16 %; MCV 105.9 fL (80.0-100.0); Macrocytosis Moderate; Mean Platelet Volume 9.8; Monocytes # (A) 0.8 k/uL (0-1.0); Monocytes % (A) 8 %; Neutrophils # (A) 7.5 k/uL (1.3-7.7); Neutrophils % (A) 68 %; RBC 3.83 m/uL (3.80-5.40); RDW 16.5 % (11.5-15.5); WBC (Perox) 10.66
[2016-09-28 06:52] LABS: Calcium 9.5 mg/dL (8.4-10.2); Potassium 4.2 mmol/L (3.5-5.1); Total Bilirubin 0.4 mg/dL (0.2-1.3); Total Protein 6.4 g/dL (6.3-8.2)
[2016-09-28] MEDS: ARTIFICIAL TEARS-HYPROMELLOSE DROPS 15 ML BTL BOTH EYES SCH ×3 (08:31→20:41)
[2016-09-28] MEDS: ARTIFICIAL TEARS OINTMENT 3.5 GM TUBE BOTH EYES SCH ×2 (08:31→20:40)
[2016-09-28] MEDS: ASPIRIN 325 MG TAB PO SCH (08:31)
[2016-09-28] MEDS: CHOLECALCIFEROL 1,000 UNIT TAB PO SCH (08:32)
[2016-09-28] MEDS: CHLORTHALIDONE 25 MG TAB PO SCH ×2 (08:32→20:40)
[2016-09-28] MEDS: amLODIPine 5 MG TAB PO SCH ×2 (08:32→20:40)
[2016-09-28] MEDS: ALLOPURINOL 100 MG TAB PO SCH (08:32)
[2016-09-28] MEDS: METOPROLOL TARTRATE 25 MG TAB PO SCH ×2 (08:33→20:41)
[2016-09-28] MEDS: FAMOTIDINE 20 MG TAB PO SCH (08:33)
--- NOTE | 2016-09-28 12:47 | P.PN ---
Subjective This is a 86-year-old female, a patient of Dr. Song. She has a known past medical history of atrial fibrillation and is on Xarelto for anticoagulation. She also has a history of hypothyroidism, hyperlipidemia, hypertension, asthma and lower extremity DVT. Patient reports that she's been having dizziness and racing heart and that brought her into the emergency room. Her symptoms started Saturday night patient was complaining of dizziness went to sleep for the evening woke again on Saturday morning having dizziness and symptoms of racing heart. Her daughter talked her into coming into the emergency room. Patient was found to have atrial fibrillation with rapid ventricular response. Her heart rate got as high as 123. She was started on a Cardizem drip. And continued on her Xarelto for anticoagulation. Heart rate is now controlled in the 70s and 80s. Cardiology is consulted. She was admitted to the sixth floor. Initial chest x-ray had showed a left lower lobe consolidation with tiny effusion. She was started on Levaquin for possible pneumonia. Chest x- ray from this morning was negative. Her white count was elevated initially at 12.3. Troponins are negative 3 sets. Urinalysis is slightly dirty awaiting urine culture. Patient is a segment for any urinary symptoms. Patient denies any fevers chills or sweats. Denies any cough. Denies any nausea or vomiting. Denies any chest pain. Does admit to having some shortness of breath but her heart was beating fast. Denies any burning with urination. As noted that last week patient was off of her Xarelto for about 3 days for an eye procedure. 09/28/2016 patient remains in A. fib heart rate is controlled. Cardiology did add metoprolol 25 mg twice a day. Patient reports that she may have been on this medication at home. Patient's daughter is to bring in her accurate medication list. Cardiology is aware and they're will review patient's medications. Patient's white count did jump up to 11. She reports that her dizziness has improved. She was able to ambulate in the hallway. She does admit to some shortness of breath. Denies any significant cough. Denies any chest pain. Denies any nausea vomiting bowel movement changes or urinary symptoms. Objective - Vital Signs Vital signs: Vital Signs Temp 96.6 F L 07/21/17 12:00 Pulse 75 09/28/16 12:00 Resp 16 09/28/16 12:00 BP 154/75 09/28/16 12:00 Pulse Ox 97 09/28/16 12:00 Intake & Output 09/27/16 09/28/16 09/28/16 18:59 06:59 18:59 Intake Total 240 370 Balance 240 370 Weight 76.7 kg Intake: IV 10 Sodium Chloride 0.9% 1, 10 000 ml @ 100 mls/hr IV . Q10H [facility] Rx#:[id number] Oral 240 360 Other: # Voids 1 - Exam Head normocephalic Neck supple Lungs coarse breath sounds at bases Heart regular rate and rhythm S1-S2, no rub or gallop Abdomen is soft nontender nondistended positive bowel sounds no hepatosplenomegaly Extremities no edema Neuro alert and orientated to 3 - Labs CBC & Chem 7: 09/28/16 06:07 09/28/16 06:07 Labs: Abnormal Lab Results - Last 24 Hours (Table) 09/28/16 09/28/16 Range/Units 06:07 06:07 WBC 11.0 H (3.8-10.6) k/uL MCV 105.9 H (80.0-100.0) fL RDW 16.5 H (11.5-15.5) % BUN 30 H (7-17) mg/dL Creatinine 1.20 H (0.52-1.04) mg/dL Glucose 109 H (74-99) mg/dL Microbiology - Last 24 Hours (Table) 09/26/16 12:06 Urine Culture - Final Urine,Voided 09/26/16 15:23 Blood Culture - Preliminary Blood No Growth after 24 hours 09/26/16 14:31 Blood Culture - Preliminary Blood No Growth after 24 hours Assessment and Plan Plan: 1. Atrial fibrillation with rapid ventricular response: Patient has history of atrial fibrillation. Continue the Xarelto for anticoagulation. Etiology is discontinue the Cardizem drip and has placed patient on metoprolol 25 mg twice a day. Patient remains in atrial fibrillation with Heart rate is controlled. Daughter is to bring in medication list for us and cardiology to review home medications. 2. Possible community-acquired pneumonia: Patient started on Levaquin. Initial chest x-ray had shown a left lower lobe consolidation with tiny effusion. Repeat chest x-ray for today is negative. White count did jump back up to 11.0. Continue to monitor. Repeat CBC in a.m. 3. Hypothyroidism continue Synthroid. Iron studies within normal range 4. Essential hypertension: Blood pressure stable. Continue Norvasc and clonidine 5. History of chronic kidney disease stage IIIB. Follows with nephrology outpatient 6. Hyperlipidemia 7. Physical therapy consulted Anticipate discharge home possibly tomorrow GI prophylaxis Pepcid and DVT prophylaxis Xarelto I performed an examination of the patient and discussed their management with the physician [employer]. I have reviewed the Physician [employer]'s notes and agree with the documented findings and plan of care
--- NOTE | 2016-09-28 13:12 | P.PN ---
Subjective This is a pleasant 86-year-old female patient who follows with Dr. Faulkner. She has a known history of atrial fibrillation, hypertension and hyperlipidemia. Presented to the emergency department with complaints of feeling her heart racing, palpitations and shortness of breath. She was found to be in atrial fibrillation with rapid ventricular response. She was initiated on a Cardizem drip. She was also found to have a left lower lobe consolidation with tiny effusion and elevated white count at 12.3. She was also started on IV antibiotics. She was started on metoprolol 25mg BID yesterday and her heart rate is controlled. The patient verbalizes that she has been on this medication for months, inaccurate home med list is currently in the computer. Upon examination, she is feeling quite a bit better. Thyroid function studies were normal this morning. She denies current complaints of shortness of breath, palpitations, dizziness, lightheadedness, chest discomfort or edema. Objective - Vital Signs Vital signs: Vital Signs Temp 96.6 F L 09/28/16 12:00 Pulse 75 09/28/16 12:00 Resp 16 09/28/16 12:00 BP 154/75 09/28/16 12:00 Pulse Ox 97 09/28/16 12:00 Intake & Output 09/27/16 09/28/16 09/28/16 18:59 06:59 18:59 Intake Total 240 370 Balance 240 370 Weight 76.7 kg Intake: IV 10 Sodium Chloride 0.9% 1, 10 000 ml @ 100 mls/hr IV . Q10H [facility] Rx#:[id number] Oral 240 360 Other: # Voids 1 - Exam PHYSICAL EXAMINATION: HEENT: Head is atraumatic, normocephalic. Pupils equal, round. Neck is supple. There is no elevated jugular venous pressure. HEART EXAMINATION: Heart sounds irregularly irregular, S1 and S2 normal. No murmur or gallop heard. CHEST EXAMINATION: Lungs are clear to auscultation and precussion. No chest wall tenderness is noted on palpation or with deep breathing. ABDOMEN: Soft, nontender. Bowel sounds are heard. No organomegaly noted. EXTREMITIES: 2+ peripheral pulses with no evidence of peripheral edema and no calf tenderness noted. NEUROLOGIC patient is awake, alert and oriented x3. - Labs CBC & Chem 7: 09/28/16 06:07 09/28/16 06:07 Labs: Abnormal Lab Results - Last 24 Hours (Table) 09/28/16 09/28/16 Range/Units 06:07 06:07 WBC 11.0 H (3.8-10.6) k/uL MCV 105.9 H (80.0-100.0) fL RDW 16.5 H (11.5-15.5) % BUN 30 H (7-17) mg/dL Creatinine 1.20 H (0.52-1.04) mg/dL Glucose 109 H (74-99) mg/dL Microbiology - Last 24 Hours (Table) 09/26/16 12:06 Urine Culture - Final Urine,Voided 09/26/16 15:23 Blood Culture - Preliminary Blood No Growth after 24 hours 09/26/16 14:31 Blood Culture - Preliminary Blood No Growth after 24 hours Assessment and Plan Plan: Assessment and plan #1 chronic atrial fibrillation with rapid ventricular response, rate currently controlled, patient is anticoagulated on Xarelto #2 left Lower lobe pneumonia #3 hypertension #4 hyperlipidemia #5 hypothyroidism, thyroid function tests currently normal, on levothyroxine From cardiology's perspective, continue anticoagulation with Xarelto. We will review correct home medication list. Continue Metoprolol 25mg BID. Patient likely will be discharged today. The above dictated assessment and findings were discussed with signing physician. The impression and plan of care have been directed as dictated. Angie Zaman, Nurse Practitioner, acting as scribe for signing physician.
[2016-09-28] MEDS: RIVAROXABAN 15 MG TAB PO SCH (17:38)
[2016-09-28] MEDS: ATORVASTATIN 40 MG TAB PO SCH (17:38)
[2016-09-29] MEDS: SODIUM CHLORIDE 0.9% 1,000 ML IV SCH ×2 (02:18→12:06)
[2016-09-29 06:30] LABS: Anisocytosis Slight; Basophils # (A) 0.1 k/uL (0-0.2); Basophils % (A) 1 %; CH 34.7; CHCM 33.4; Eosinophils # (A) 0.9 k/uL (0-0.7); Eosinophils % (A) 9 %; HCT 39.7 % (34.0-46.0); HDW 2.61; HGB 13.4 gm/dL (11.4-16.0); Luc # (Auto) 0.18; Luc % (Auto) 2; Lymphocytes # (A) 1.5 k/uL (1.0-4.8); Lymphocytes % (A) 16 %; MCH 35.2 pg (25.0-35.0); MCHC 33.7 g/dL (31.0-37.0); MCV 104.2 fL (80.0-100.0); Macrocytosis Moderate; Mean Platelet Volume 10.2; Monocytes # (A) 0.8 k/uL (0-1.0); Monocytes % (A) 8 %; Neutrophils # (A) 5.9 k/uL (1.3-7.7); Neutrophils % (A) 64 %; RBC 3.81 m/uL (3.80-5.40); RDW 16.5 % (11.5-15.5); WBC 9.3 k/uL (3.8-10.6); WBC (Perox) 9.23
[2016-09-29 06:44] LABS: Calcium 9.3 mg/dL (8.4-10.2); Potassium 3.8 mmol/L (3.5-5.1); Total Bilirubin 0.6 mg/dL (0.2-1.3); Total Protein 6.3 g/dL (6.3-8.2)
[2016-09-29] MEDS: LEVOTHYROXINE 50 MCG TAB PO SCH (07:02)
[2016-09-29] MEDS: ARTIFICIAL TEARS-HYPROMELLOSE DROPS 15 ML BTL BOTH EYES SCH (08:28)
[2016-09-29] MEDS: ARTIFICIAL TEARS OINTMENT 3.5 GM TUBE BOTH EYES SCH (08:37)
[2016-09-29] MEDS: ALLOPURINOL 100 MG TAB PO SCH (08:38)
[2016-09-29] MEDS: METOPROLOL TARTRATE 25 MG TAB PO SCH (08:38)
[2016-09-29] MEDS: amLODIPine 5 MG TAB PO SCH (08:38)
[2016-09-29] MEDS: ASPIRIN 325 MG TAB PO SCH (08:38)
[2016-09-29] MEDS: CHLORTHALIDONE 25 MG TAB PO SCH (08:39)
[2016-09-29] MEDS: FAMOTIDINE 20 MG TAB PO SCH (08:40)
[2016-09-29] MEDS: ACETAMINOPHEN TAB 500 MG TAB PO PRN (08:44)
[2016-09-29] MEDS ORDERED: LEVOFLOXACIN 750MG-D5W PMX 750 MG in DEXTROSE/WATER 1 150ML.BAG IVPB SCH (09:00)
--- NOTE | 2016-09-29 10:52 | P.DS ---
Providers Date of admission: 09/26/16 13:16 Expected date of discharge: 09/29/16 Attending physician: Maye Salazar Consults: 09/26/16 13:16 Consult Physician Urgent Consulting Provider: Jv Olsen Consult Reason/Comments: afib Do you want consulting provider notified?: Yes Primary care physician: Melissa [facility] Course: This is a 86-year-old female with past medical history noted below significant for chronic atrial fibrillation who presented to the hospital with worsening dizziness and was found to have rapid ventricular response. She was seen and evaluated by cardiology. Thyroid function tests checked and normal. Heart rate improved on a Cardizem drip and subsequently patient was switched back to her home dose of oral metoprolol 25 mg twice a day. 1. Atrial fibrillation with rapid ventricular response: Patient has history of atrial fibrillation. Continue the Xarelto for anticoagulation. Patient was cleared for discharge home. 2. Possible community-acquired pneumonia: Patient started on Levaquin. Initial chest x-ray had shown a left lower lobe consolidation with tiny effusion. We will finish 5 days course of antibiotic 3. Hypothyroidism continue Synthroid. 4. Essential hypertension: Blood pressure stable. Continue Norvasc and clonidine 5. History of chronic kidney disease stage IIIB. Follows with nephrology outpatient 6. Hyperlipidemia Patient Condition at Discharge: Fair Plan - Discharge Summary New Discharge Prescriptions: New Levofloxacin [Levaquin] 250 mg PO DAILY #5 tablet Continue Levothyroxine Sodium [Synthroid] 50 mcg PO AC-BRKFST Rivaroxaban [Xarelto] 15 mg PO PC-SUPPER Atorvastatin Calcium [Lipitor] 40 mg PO PC-SUPPER cloNIDine 0.2 MG/24HR PATCH [Catapres-TTS] 1 patch TRANSDERM PEARSON Otc Eye Moisturizing Drop 1 drop BOTH EYES TID Otc Eye Ointment 1 applic BOTH EYES BID Cholecalciferol [Vitamin D3] 2,000 unit PO DAILY Acetaminophen [Tylenol] 1,000 mg PO Q6H PRN PRN Reason: Pain Chlorthalidone [Hygroton] 12.5 mg PO BID Allopurinol [Zyloprim] 100 mg PO DAILY amLODIPine [Norvasc] 5 mg PO DAILY Metoprolol Tartrate [Lopressor] 25 mg PO DAILY Discharge Medication List Levothyroxine Sodium [Synthroid] 50 mcg PO AC-BRKFST 05/05/14 [History] Atorvastatin Calcium [Lipitor] 40 mg PO PC-SUPPER 10/06/15 [History] Rivaroxaban [Xarelto] 15 mg PO PC-SUPPER 10/06/15 [History] Acetaminophen [Tylenol] 1,000 mg PO Q6H PRN 09/26/16 [History] Allopurinol [Zyloprim] 100 mg PO DAILY 09/26/16 [History] Chlorthalidone [Hygroton] 12.5 mg PO BID 09/26/16 [History] Cholecalciferol [Vitamin D3] 2,000 unit PO DAILY 09/26/16 [History] Otc Eye Moisturizing Drop 1 drop BOTH EYES TID 09/26/16 [History] Otc Eye Ointment 1 applic BOTH EYES BID 09/26/16 [History] amLODIPine [Norvasc] 5 mg PO DAILY 09/26/16 [History] cloNIDine 0.2 MG/24HR PATCH [Catapres-TTS] 1 patch TRANSDERM PEARSON 09/26/16 [ History] Metoprolol Tartrate [Lopressor] 25 mg PO DAILY 09/28/16 [History] Levofloxacin [Levaquin] 250 mg PO DAILY #5 tablet 09/29/16 [Rx] Follow up Appointment(s)/Referral(s): [facility], [NON-STAFF] - Melissa Song MD [Primary Care Provider] - 1-2 days Gavino Faulkner MD [STAFF PHYSICIAN] - 2 Weeks Discharge Disposition: HOME WITH HOME HEALTH SERVICES
[2016-09-29] MEDS: CHOLECALCIFEROL 1,000 UNIT TAB PO SCH (12:17)
[2016-09-29 12:38] VITALS: BP 125/61; PULSE 74; RESP 18; TEMP 96.2
[2016-09-30] MEDS ORDERED: cloNIDine 0.2 MG/24HR PATCH 1 PATCH PATCH TRANSDERM SCH (09:00)
== END 2016-09-29 13:39 | disposition home health service (06) | DRG 308 ==
LOC: EC 11:42 → 6SEL 13:16
PROVIDERS: ADMIT Internal Medicine; ATTEND Internal Medicine
DX: I48.2 Chronic atrial fibrillation (principal); J18.9 Pneumonia, unspecified organism; N18.3 Chronic kidney disease, stage 3 (moderate); I12.9 Hypertensive chronic kidney disease with stage 1 through stage 4 chronic kidney disease, or unspecified chronic kidney disease; J45.909 Unspecified asthma, uncomplicated; E78.5 Hyperlipidemia, unspecified; E03.9 Hypothyroidism, unspecified; K21.9 Gastro-esophageal reflux disease without esophagitis; T45.516A Underdosing of anticoagulants, initial encounter; H40.9 Unspecified glaucoma; E66.9 Obesity, unspecified; F41.9 Anxiety disorder, unspecified; R29.6 Repeated falls; D72.829 Elevated white blood cell count, unspecified; L71.9 Rosacea, unspecified; M19.90 Unspecified osteoarthritis, unspecified site; K64.9 Unspecified hemorrhoids; Z88.1 Allergy status to other antibiotic agents; Z88.0 Allergy status to penicillin; Z88.2 Allergy status to sulfonamides; Z79.899 Other long term (current) drug therapy; Z80.1 Family history of malignant neoplasm of trachea, bronchus and lung; Z86.718 Personal history of other venous thrombosis and embolism; Z79.01 Long term (current) use of anticoagulants; Z87.440 Personal history of urinary (tract) infections; Z87.11 Personal history of peptic ulcer disease; Z98.42 Cataract extraction status, left eye; Z98.41 Cataract extraction status, right eye; Z63.79 Other stressful life events affecting family and household; Z83.2 Family history of diseases of the blood and blood-forming organs and certain disorders involving the immune mechanism; Z91.81 History of falling
CPT/HCPCS: 36415; 71020; 80053; 80061; 81001; 82550; 82553; 83735; 84100; 84439; 84443; 84484; 85025; 85610; 85730; 87040; 87086; 93005; 94760; 96361; 96374; 99285

== ENCOUNTER → 2016-12-08 | Outpatient (CLI) | payer MEDICARE ==
[2016-12-08 12:09] LABS: Anisocytosis Slight; Basophils # (A) 0.1 k/uL (0-0.2); Basophils % (A) 1 %; CH 35.4; CHCM 32.5; Eosinophils # (A) 0.8 k/uL (0-0.7); Eosinophils % (A) 8 %; HCT 45.1 % (34.0-46.0); HDW 2.59; HGB 14.6 gm/dL (11.4-16.0); Luc # (Auto) 0.25; Luc % (Auto) 3; Lymphocytes # (A) 2.5 k/uL (1.0-4.8); Lymphocytes % (A) 25 %; MCH 35.4 pg (25.0-35.0); MCHC 32.3 g/dL (31.0-37.0); MCV 109.5 fL (80.0-100.0); Macrocytosis Marked; Mean Platelet Volume 10.8; Monocytes # (A) 0.7 k/uL (0-1.0); Monocytes % (A) 7 %; Neutrophils # (A) 5.6 k/uL (1.3-7.7); Neutrophils % (A) 57 %; RBC 4.12 m/uL (3.80-5.40); RDW 16.7 % (11.5-15.5); WBC 9.9 k/uL (3.8-10.6); WBC (Perox) 10.08
[2016-12-08 12:33] LABS: Manual Review Performed
[2016-12-08 12:41] LABS: Calcium 9.7 mg/dL (8.4-10.2); Phosphorus 3.2 mg/dL (2.5-4.5); Total Bilirubin 0.7 mg/dL (0.2-1.3); Total Protein 7.7 g/dL (6.3-8.2); Uric Acid 6.6 mg/dL (3.7-7.4)
[2016-12-08 16:56] LABS: Iron Saturation 37.5 (12.00-45.00)
== END | disposition home or self-care (01) ==
LOC: LABWHC1 11:09
PROVIDERS: ATTEND Family Medicine
DX: N18.3 Chronic kidney disease, stage 3 (moderate) (principal); D64.9 Anemia, unspecified; E55.9 Vitamin D deficiency, unspecified; M10.9 Gout, unspecified; R80.9 Proteinuria, unspecified; E21.3 Hyperparathyroidism, unspecified
CPT/HCPCS: 36415; 80053; 82306; 82570; 82728; 83540; 83550; 83735; 83970; 84100; 84156; 84443; 84550; 85025

== ENCOUNTER 2017-04-04 19:24 | Emergency (ER) | payer MEDICARE ==
[2017-04-04 19:32] VITALS: TEMP 98.2
--- NOTE | 2017-04-04 19:57 | ED ---
Dizziness HPI - General Chief Complaint: Dizziness Stated Complaint: dizziness Time Seen by Provider: 04/04/17 19:25 Source: patient, family, RN notes reviewed Mode of arrival: wheelchair - History of Present Illness Initial Comments: This is an 86-year-old female with past medical history significant for atrial fibrillation per patient comes into the emergency department because she was walking in the store and felt as though she was given a fall over and then she eventually made her way to the bathroom and was unable to get off the toilet seat without some assistance. Patient states he symptoms seemed to last for 5- 10 minutes. Patient states lying in bed now she is asymptomatic but she is not sure if she got out of bed if she could walk without assistance. Patient denies any pain to this episode. She denies any headache she denies any numbness or focal weakness. Patient denies any palpitations per patient denies any chest pain. Patient denies being short of breath or having any difficulty breathing. Patient denies abdominal pain patient denies nausea vomiting diarrhea. Patient denies any recent fever or chills. Patient states prior to this episode she felt good all day and just got done eating dinner. - Related Data Home Medications Medication Instructions Recorded Confirmed Levothyroxine Sodium [Synthroid] 50 mcg PO AC-BRKFST 05/05/14 04/04/17 Atorvastatin Calcium [Lipitor] 40 mg PO HS 10/06/15 04/04/17 Rivaroxaban [Xarelto] 15 mg PO HS 10/06/15 04/04/17 Acetaminophen [Tylenol] 1,000 mg PO Q6H PRN 09/26/16 04/04/17 Allopurinol [Zyloprim] 100 mg PO DAILY 09/26/16 04/04/17 Chlorthalidone [Hygroton] 12.5 mg PO DAILY 09/26/16 04/04/17 Cholecalciferol [Vitamin D3] 2,000 unit PO DAILY 09/26/16 04/04/17 amLODIPine [Norvasc] 5 mg PO DAILY 09/26/16 04/04/17 cloNIDine 0.2 MG/24HR PATCH 1 patch TRANSDERM PEARSON 09/26/16 04/04/17 [Catapres-TTS] Acetaminophen [Tylenol] 1,000 mg PO Q4-6H PRN 04/04/17 04/04/17 Colchicine 0.6 mg PO DAILY 04/04/17 04/04/17 Metoprolol Succinate [Toprol XL] 25 mg PO HS 04/04/17 04/04/17 Tart Davial Extract 1500mg 1,500 mg PO DAILY 04/04/17 04/04/17 Previous Rx's Medication Instructions Recorded Levofloxacin [Levaquin] 750 mg PO DAILY #7 tab 04/04/17 Allergies Allergy/AdvReac Type Severity Reaction Status Date / Time cephalexin monohydrate Allergy Rash/Hives Verified 04/04/17 19:55 [From Keflex] Penicillins Allergy Swelling Verified 04/04/17 19:55 sulfamethoxazole Allergy Nausea & Verified 04/04/17 19:55 [From Bactrim] Vomiting trimethoprim [From Bactrim] Allergy Nausea & Verified 04/04/17 19:55 Vomiting Review of Systems ROS Statement: Those systems with pertinent positive or pertinent negative responses have been documented in the HPI. ROS Other: All systems not noted in ROS Statement are negative. Past Medical History Past Medical History: Atrial Fibrillation, Asthma, Deep Vein Thrombosis (DVT), GERD/Reflux, Hyperlipidemia, Hypertension, Osteoarthritis (OA), Thyroid Disorder Additional Past Medical History / Comment(s): past falls, uti,hemorrhoids, hammer toes,enlarged heart, glaucoma, sees dr for rt eye (retina),seasonal allergies, ulcer 40 years ago, rosecea. pts grand daughter has factor 5- pt never was tested, uti,djd. History of Any Multi-Drug Resistant Organisms: None Reported Past Surgical History: Bladder Surgery, Tonsillectomy Additional Past Surgical History / Comment(s): blood clot removed rt leg, vein stripping, colonoscopy, bladder suspension, lashay cataracts removed, lashay eye lift sx, Past Anesthesia/Blood Transfusion Reactions: No Reported Reaction Past Psychological History: No Psychological Hx Reported Smoking Status: Never smoker Past Alcohol Use History: None Reported Past Drug Use History: None Reported - Past Family History Mother Additional Family Medical History / Comment(s): mom in childbirth, hemmorraged... pt's granddaughter has factor five Father Family Medical History: Cancer Additional Family Medical History / Comment(s): lung cancer General Exam - General Exam Comments Initial Comments: GENERAL: Patient is well-developed and well-nourished. Patient is nontoxic and well- hydrated and is in no acute distress. ENT: Neck is soft and supple. No significant lymphadenopathy is noted. Oropharynx is clear. Moist mucous membranes. Neck has full range of motion without eliciting any pain. EYES: The sclera were anicteric and conjunctiva were pink and moist. Extraocular movements were intact and pupils were equal round and reactive to light. Eyelids were unremarkable. PULMONARY: Unlabored respirations. Good breath sounds bilaterally. No audible rales rhonchi or wheezing was noted. CARDIOVASCULAR: She has no irregular heartbeat. ABDOMEN: Soft and nontender with normal bowel sounds. No palpable organomegaly was noted. There is no palpable pulsatile mass. SKIN: Skin is clear with no lesions or rashes and otherwise unremarkable. NEUROLOGIC: Patient is alert and oriented x3. Cranial nerves II through XII are grossly intact. Motor and sensory are also intact. Normal speech, volume and content. Symmetrical smile. MUSCULOSKELETAL: Normal extremities with adequate strength and full range of motion. No lower extremity swelling or edema. No calf tenderness. LYMPHATICS: No significant lymphadenopathy is noted PSYCHIATRIC: Normal psychiatric evaluation. Normal interpersonal interactions appears functionally intact in deals appropriately with others. No signs of depression. No signs of anxiety. Course Vital Signs 04/04/17 04/04/17 19:27 20:25 Temperature 98.2 F Pulse Rate 115 H 86 Respiratory 18 16 Rate Blood Pressure 132/98 124/60 O2 Sat by Pulse 96 95 Oximetry Medical Decision Making - Medical Decision Making EKG shows atrial fibrillation at 97 bpm QRS is 84 Q-T intervals 326 QTC is 414 per patient's EKG shows no ST segment elevation or depression or T wave abnormalities are noted. Patient was able to ambulate in the emergency department without problem. Patient got Levaquin in the emergency department for her urinary tract infection. - Lab Data Result diagrams: 04/04/17 19:42 04/04/17 19:42 Lab Results 04/04/17 04/04/17 04/04/17 Range/Units 19:42 19:42 19:42 WBC 8.5 (3.8-10.6) k/uL RBC 3.75 L (3.80-5.40) m/uL Hgb 13.2 (11.4-16.0) gm/dL Hct 39.5 (34.0-46.0) % MCV 105.4 H (80.0-100.0) fL MCH 35.3 H (25.0-35.0) pg MCHC 33.5 (31.0-37.0) g/dL RDW 15.9 H (11.5-15.5) % Plt Count 205 (150-450) k/uL Neutrophils % 68 % Lymphocytes % 20 % Monocytes % 7 % Eosinophils % 3 % Basophils % 1 % Neutrophils # 5.8 (1.3-7.7) k/uL Lymphocytes # 1.7 (1.0-4.8) k/uL Monocytes # 0.6 (0-1.0) k/uL Eosinophils # 0.2 (0-0.7) k/uL Basophils # 0.0 (0-0.2) k/uL Macrocytosis Moderate PT (9.0-12.0) sec INR (<1.2) APTT (22.0-30.0) sec Sodium 141 (137-145) mmol/L Potassium 4.5 (3.5-5.1) mmol/L Chloride 103 (98-107) mmol/L Carbon Dioxide 26 (22-30) mmol/L Anion Gap 12 mmol/L BUN 35 H (7-17) mg/dL Creatinine 1.44 H (0.52-1.04) mg/dL Est GFR (MDRD) Af Amer 42 (>60 ml/min/1.73 sqM) Est GFR (MDRD) Non-Af 35 (>60 ml/min/1.73 sqM) Glucose 212 H (74-99) mg/dL Calcium 9.7 (8.4-10.2) mg/dL Magnesium 1.7 (1.6-2.3) mg/dL Total Bilirubin 0.5 (0.2-1.3) mg/dL AST 24 (14-36) U/L ALT 25 (9-52) U/L Alkaline Phosphatase 75 (38-126) U/L Total Creatine Kinase 49 (30-135) U/L CK-MB (CK-2) 0.6 (0.0-2.4) ng/mL CK-MB (CK-2) Rel Index 1.2 Troponin I <0.012 (0.000-0.034) ng/mL Total Protein 6.9 (6.3-8.2) g/dL Albumin 4.0 (3.5-5.0) g/dL Urine Color Urine Appearance (Clear) Urine pH (5.0-8.0) Ur Specific [place] (1.001-1.035) Urine Protein (Negative) Urine Glucose (UA) (Negative) Urine Ketones (Negative) Urine Blood (Negative) Urine Nitrite (Negative) Urine Bilirubin (Negative) Urine Urobilinogen (<2.0) mg/dL Ur Leukocyte Esterase (Negative) Urine RBC (0-5) /hpf Urine WBC (0-5) /hpf Urine WBC Clumps (None) /hpf Ur Squamous Epith Cells (0-4) /hpf Urine Bacteria (None) /hpf Hyaline Casts (0-2) /lpf Urine Mucus (None) /hpf 04/04/17 04/04/17 Range/Units 19:42 20:48 WBC (3.8-10.6) k/uL RBC (3.80-5.40) m/uL Hgb (11.4-16.0) gm/dL Hct (34.0-46.0) % MCV (80.0-100.0) fL MCH (25.0-35.0) pg MCHC (31.0-37.0) g/dL RDW (11.5-15.5) % Plt Count (150-450) k/uL Neutrophils % % Lymphocytes % % Monocytes % % Eosinophils % % Basophils % % Neutrophils # (1.3-7.7) k/uL Lymphocytes # (1.0-4.8) k/uL Monocytes # (0-1.0) k/uL Eosinophils # (0-0.7) k/uL Basophils # (0-0.2) k/uL Macrocytosis PT 10.3 (9.0-12.0) sec INR 1.1 (<1.2) APTT 22.5 (22.0-30.0) sec Sodium (137-145) mmol/L Potassium (3.5-5.1) mmol/L Chloride (98-107) mmol/L Carbon Dioxide (22-30) mmol/L Anion Gap mmol/L BUN (7-17) mg/dL Creatinine (0.52-1.04) mg/dL Est GFR (MDRD) Af Amer (>60 ml/min/1.73 sqM) Est GFR (MDRD) Non-Af (>60 ml/min/1.73 sqM) Glucose (74-99) mg/dL Calcium (8.4-10.2) mg/dL Magnesium (1.6-2.3) mg/dL Total Bilirubin (0.2-1.3) mg/dL AST (14-36) U/L ALT (9-52) U/L Alkaline Phosphatase (38-126) U/L Total Creatine Kinase (30-135) U/L CK-MB (CK-2) (0.0-2.4) ng/mL CK-MB (CK-2) Rel Index Troponin I (0.000-0.034) ng/mL Total Protein (6.3-8.2) g/dL Albumin (3.5-5.0) g/dL Urine Color Yellow Urine Appearance Cloudy H (Clear) Urine pH 5.5 (5.0-8.0) Ur Specific [place] 1.017 (1.001-1.035) Urine Protein Trace H (Negative) Urine Glucose (UA) Negative (Negative) Urine Ketones Negative (Negative) Urine Blood Small H (Negative) Urine Nitrite Negative (Negative) Urine Bilirubin Negative (Negative) Urine Urobilinogen <2.0 (<2.0) mg/dL Ur Leukocyte Esterase Large H (Negative) Urine RBC 10 H (0-5) /hpf Urine WBC >182 H (0-5) /hpf Urine WBC Clumps Many H (None) /hpf Ur Squamous Epith Cells 2 (0-4) /hpf Urine Bacteria Rare H (None) /hpf Hyaline Casts 14 H (0-2) /lpf Urine Mucus Rare H (None) /hpf Disposition Clinical Impression: Dizziness, Urinary tract infection Disposition: HOME SELF-CARE Condition: Good Instructions: Urinary Tract Infection in Women (ED), Dizziness (ED) Prescriptions: Levofloxacin [Levaquin] 750 mg PO DAILY #7 tab Referrals: Melissa Song MD [Primary Care Provider] - 1-2 days Time of Disposition: 21:30
--- NOTE | 2017-04-04 20:21 | XR ---
EXAMINATION TYPE: XR chest 2V DATE OF EXAM: 04/04/2017 COMPARISON: 09/27/2016 INDICATION: Chest pain TECHNIQUE: Frontal and lateral views of the chest are obtained. FINDINGS: The heart size is normal. The pulmonary vasculature is normal. The lungs are clear. There is exaggeration of the thoracic kyphosis. Costochondral cartilage calcifi cation is noted. Some degenerative disc changes within the mid thoracic spine. There are degenerative changes at the bilateral shoulders. IMPRESSION: 1. No acute pulmonary process.
[2017-04-04 20:28] VITALS: RESP 16
[2017-04-04 20:38] LABS: INR 1.1 (<1.2); Partial Thromboplastin Time 22.5 sec (22.0-30.0); Prothrombin Time 10.3 sec (9.0-12.0)
[2017-04-04 20:46] LABS: Basophils % (A) 1 %; Eosinophils # (A) 0.2 k/uL (0-0.7); Eosinophils % (A) 3 %; HCT 39.5 % (34.0-46.0); HGB 13.2 gm/dL (11.4-16.0); Lymphocytes # (A) 1.7 k/uL (1.0-4.8); Lymphocytes % (A) 20 %; MCH 35.3 pg (25.0-35.0); MCHC 33.5 g/dL (31.0-37.0); MCV 105.4 fL (80.0-100.0); Macrocytosis Moderate; Mean Platelet Volume 10.2; Monocytes # (A) 0.6 k/uL (0-1.0); Monocytes % (A) 7 %; Neutrophils # (A) 5.8 k/uL (1.3-7.7); Neutrophils % (A) 68 %; Platelet Count 205 k/uL (150-450); RBC 3.75 m/uL (3.80-5.40); RDW 15.9 % (11.5-15.5); WBC 8.5 k/uL (3.8-10.6)
[2017-04-04 20:47] LABS: Calcium 9.7 mg/dL (8.4-10.2); Magnesium 1.7 mg/dL (1.6-2.3); Potassium 4.5 mmol/L (3.5-5.1); Total Bilirubin 0.5 mg/dL (0.2-1.3); Total Protein 6.9 g/dL (6.3-8.2)
[2017-04-04 20:50] LABS: Creatine Kinase 49 U/L (30-135)
[2017-04-04 21:00] LABS: Appearance,Urine Cloudy (Clear); Bacteria,Urine Rare /hpf; Bilirubin,Urine Negative (Negative); Blood,Urine Small (Negative); Color,Urine Yellow; Glucose,Urine (UA) Negative (Negative); Hyaline Casts,Urine 14 /lpf (0-2); Ketones,Urine Negative (Negative); Leukocyte Esterase,Urine Large (Negative); Mucus,Urine Rare /hpf; Nitrite,Urine Negative (Negative); PH, Urine 5.5 (5.0-8.0); Protein,Urine Trace (Negative); RBC,Urine 10 /hpf (0-5); Specific Gravity,Urine 1.017 (1.001-1.035); Squamous Epithelial Cell,Urine 2 /hpf (0-4); Urobilinogen,Urine <2.0 mg/dL (<2.0); WBC,Urine >182 /hpf (0-5)
[2017-04-04 21:03] LABS: Creatine Kinase MB 0.6 ng/mL (0.0-2.4); Troponin I <0.012 ng/mL (0.000-0.034)
[2017-04-04] MEDS ORDERED: LEVOFLOXACIN 750 MG TAB PO STA (21:12)
[2017-04-04 21:30] VITALS: BP 134/63; PULSE 97
== END 2017-04-04 21:44 | disposition home or self-care (01) ==
LOC: EC 19:24
DX: R42 Dizziness and giddiness (principal); N39.0 Urinary tract infection, site not specified; I48.91 Unspecified atrial fibrillation; E78.5 Hyperlipidemia, unspecified; I10 Essential (primary) hypertension; M19.90 Unspecified osteoarthritis, unspecified site; E07.9 Disorder of thyroid, unspecified; Z79.01 Long term (current) use of anticoagulants; Z79.899 Other long term (current) drug therapy; Z88.0 Allergy status to penicillin; Z88.1 Allergy status to other antibiotic agents; Z88.2 Allergy status to sulfonamides
CPT/HCPCS: 36415; 71046; 80053; 81001; 82550; 82553; 83735; 84484; 85025; 85610; 85730; 93005; 99284

== ENCOUNTER → 2017-07-06 | Outpatient (CLI) | payer MEDICARE ==
[2017-07-06 10:21] LABS: HCT 43.3 % (34.0-46.0); HGB 13.8 gm/dL (11.4-16.0); Hypochromasia Slight; MCH 33.6 pg (25.0-35.0); MCHC 31.8 g/dL (31.0-37.0); MCV 105.8 fL (80.0-100.0); Macrocytosis Moderate; Mean Platelet Volume 10.4; Platelet Count 252 k/uL (150-450); RDW 15.4 % (11.5-15.5); WBC 10.3 k/uL (3.8-10.6)
[2017-07-06 10:36] LABS: Calcium 9.5 mg/dL (8.4-10.2); Potassium 4.4 mmol/L (3.5-5.1)
[2017-07-06 17:11] LABS: Parathyroid Hormone Intact 86.8 pg/mL (14.0-72.0)
[2017-07-06 17:16] LABS: Vitamin D 25 Hydroxy 28.2 ng/mL (30.0-100.0)
== END | disposition home or self-care (01) ==
LOC: LABWHC1 09:22
PROVIDERS: ATTEND Physician Assistant Medical
DX: D64.9 Anemia, unspecified (principal); E55.9 Vitamin D deficiency, unspecified; N18.3 Chronic kidney disease, stage 3 (moderate)
CPT/HCPCS: 36415; 80048; 82306; 83970; 85027

== ENCOUNTER → 2017-07-31 | Outpatient (CLI) | payer MEDICARE ==
--- NOTE | 2017-08-01 11:19 | NM ---
EXAMINATION TYPE: NM thyroid image w uptake DATE OF EXAM: 08/01/2017 COMPARISON: 10/16/2011 and carotid ultrasound dated 04/16/2017 HISTORY: Incidental 2 cm right thyroid nodule on the carotid ultrasound dated 04/16/2017. TECHNIQUE: Thyroid iodine uptake is calculated and images performed after the oral administration of 341 uCi 1-123 Capsule. FINDINGS: Photopenic defect is appreciated within the right upper pole of the thyroid. The 4 hour iod ine uptake is calculated at 5.6% (normal range 8-14%). The 24-hour iodine uptake is calculated at 16. 4% (normal range 15-35%). IMPRESSION: 1. Photopenic defect that may correlate with a cold nodule in the superior pole of the right lobe of the thyroid, however correlation with thyroid ultrasound is recommended. 2. Slightly diminished uptake on the 4 hour measurement which can relate to hypothyroidism, subacute thyroiditis, or excess iodine intake.
== END | disposition home or self-care (01) ==
LOC: RADNMMAIN 09:42
PROVIDERS: ATTEND Family Medicine
DX: E04.1 Nontoxic single thyroid nodule (principal); E03.9 Hypothyroidism, unspecified
CPT/HCPCS: 78014; A9516

== ENCOUNTER 2017-09-05 11:59 | Day surgery (SDC) | payer MEDICARE ==
[2017-09-05 12:41] VITALS: BP 147/76; PULSE 87; RESP 20; TEMP 97.7
--- NOTE | 2017-09-05 14:22 | US ---
EXAMINATION TYPE: US FNA thyroid DATE OF EXAM: 09/05/2017 COMPARISON: NONE HISTORY: Nuclear medicine scan 07/31/2017 Maximal barrier technique was utilized. After informed consent, skin overlying the lesion was locali zed with ultrasound and the overlying skin prepped and draped. Ultrasound was utilized using sterile technique. Lidocaine was used for local anesthesia. 6 passes with a 25-gauge needle were made into th e right upper lobe thyroid nodule and aspirated specimen was submitted to cytology. Following the pr ocedure hemostasis achieved. No immediate complication. The patient discharged in stable condition. IMPRESSION: STATUS POST ULTRASOUND GUIDED FINE NEEDLE ASPIRATION OF THYROID NODULE, PATHOLOGY IS PEND ING. THIS PROCEDURE WAS PERFORMED BY THE UNDERSIGNED.
== END 2017-09-05 14:00 | disposition home or self-care (01) ==
LOC: RADPROMAIN 11:59
PROVIDERS: ATTEND Family Medicine
DX: E04.1 Nontoxic single thyroid nodule (principal)
CPT/HCPCS: 10022; 76942; 88173; 88305

== ENCOUNTER → 2018-01-11 | Outpatient (CLI) | payer MEDICARE ==
[2018-01-11 09:50] LABS: Anisocytosis Slight; HCT 44.9 % (34.0-46.0); MCHC 31.2 g/dL (31.0-37.0); MCV 109.2 fL (80.0-100.0); Macrocytosis Marked; Mean Platelet Volume 9.4; Platelet Count 244 k/uL (150-450); RBC 4.11 m/uL (3.80-5.40); RDW 16.4 % (11.5-15.5); WBC 10.6 k/uL (3.8-10.6)
[2018-01-11 16:35] LABS: Rheumatoid Factor 5 IU/mL (0-15)
[2018-01-11 16:48] LABS: Vitamin D 25 Hydroxy 23.5 ng/mL (30.0-100.0)
[2018-01-11 17:33] LABS: ALT 27 U/L (8-44); AST 27 U/L (13-35); Albumin/Globulin Ratio 1.65 (1.20-2.10); Alkaline Phosphatase 97 U/L (41-126); C Reactive Protein <0.4 mg/dL (0.0-0.8); Calcium 9.6 mg/dL (8.7-10.3); Carbon Dioxide 27.4 mmol/L (21.6-31.8); Chloride 105 mmol/L (96-109); Globulin 2.6 g/dL (2.1-3.7); Glucose 97 mg/dL (70-110); Potassium 3.9 mmol/L (3.5-5.5); Sodium 139 mmol/L (135-145); Total Bilirubin 0.7 mg/dL (0.3-1.2); Total Protein 6.9 g/dL (6.2-8.2); Uric Acid 5.1 mg/dL (2.9-7.7)
[2018-01-11 17:34] LABS: Parathyroid Hormone Intact 44.1 pg/mL (14.0-72.0)
[2018-01-11 18:02] LABS: Cyclic Citrullinated Pep IgG NEGATIVE (NEGATIVE)
[2018-01-11 23:00] LABS: Creatinine,Urine Random 130.4 mg/dL
[2018-01-11 23:02] LABS: Total Protein,Urine Random 19.5 mg/dL (0.0-13.5)
== END ==
LOC: LABWHC1 09:09
PROVIDERS: ATTEND Nurse Practitioner Family
DX: E55.9 Vitamin D deficiency, unspecified (principal); M10.9 Gout, unspecified; N25.81 Secondary hyperparathyroidism of renal origin; N18.3 Chronic kidney disease, stage 3 (moderate); E04.1 Nontoxic single thyroid nodule; M25.50 Pain in unspecified joint; R71.8 Other abnormality of red blood cells
CPT/HCPCS: 36415; 80053; 82306; 82570; 82607; 83970; 84156; 84443; 84481; 84550; 85027; 86038; 86140; 86200; 86431

== ENCOUNTER → 2018-07-22 | Outpatient (CLI) | payer MEDICARE ==
[2018-07-22 16:08] LABS: Basophils # (A) 0.1 k/uL (0-0.2); Basophils % (A) 1 %; Eosinophils # (A) 0.7 k/uL (0-0.7); Eosinophils % (A) 9 %; HCT 42.6 % (34.0-46.0); Lymphocytes % (A) 24 %; MCH 32.6 pg (25.0-35.0); MCHC 30.5 g/dL (31.0-37.0); MCV 107.1 fL (80.0-100.0); Macrocytosis Marked; Mean Platelet Volume 10.7; Monocytes # (A) 0.6 k/uL (0-1.0); Monocytes % (A) 7 %; Neutrophils # (A) 4.7 k/uL (1.3-7.7); Neutrophils % (A) 57 %; Platelet Count 244 k/uL (150-450); RBC 3.98 m/uL (3.80-5.40); RDW 15.7 % (11.5-15.5); WBC 8.3 k/uL (3.8-10.6)
[2018-07-22 16:34] LABS: Appearance,Urine Clear (Clear); Bilirubin,Urine Negative (Negative); Blood,Urine Negative (Negative); Color,Urine Yellow; Glucose,Urine (UA) Negative (Negative); Hyaline Casts,Urine 1 /lpf (0-2); Ketones,Urine Negative (Negative); Leukocyte Esterase,Urine Moderate (Negative); Mucus,Urine Rare /hpf; Nitrite,Urine Negative (Negative); PH, Urine 5.5 (5.0-8.0); Protein,Urine Negative (Negative); RBC,Urine 1 /hpf (0-5); Squamous Epithelial Cell,Urine <1 /hpf (0-4); Urobilinogen,Urine <2.0 mg/dL (<2.0); WBC,Urine 10 /hpf (0-5)
[2018-07-22 16:50] LABS: Poikilocytosis (M) Present
[2018-07-23 04:10] LABS: Creatinine,Urine Random 84.5 mg/dL; Parathyroid Hormone Intact 98.5 pg/mL (14.0-72.0)
[2018-07-23 04:11] LABS: Albumin 4.3 g/dL (3.80-4.90); Calcium 9.5 mg/dL (8.7-10.3); Iron Saturation 27.96 (12.00-45.00); Phosphorus 3.7 mg/dL (2.4-5.1); Total Protein,Urine Random 9.4 mg/dL (0.0-13.5); Uric Acid 5.3 mg/dL (2.9-7.7)
[2018-07-23 04:12] LABS: Vitamin D 25 Hydroxy 24.8 ng/mL (30.0-100.0)
== END ==
LOC: LABWHC1 15:24
PROVIDERS: ATTEND Internal Medicine Nephrology
DX: N18.3 Chronic kidney disease, stage 3 (moderate) (principal); N39.0 Urinary tract infection, site not specified; M10.9 Gout, unspecified; E55.9 Vitamin D deficiency, unspecified; E21.3 Hyperparathyroidism, unspecified; R80.9 Proteinuria, unspecified; D63.1 Anemia in chronic kidney disease
CPT/HCPCS: 36415; 80048; 81001; 82040; 82306; 82570; 82728; 83540; 83550; 83735; 83970; 84100; 84156; 84550; 85025

== ENCOUNTER → 2019-01-22 | Outpatient (CLI) | payer MEDICARE ==
[2019-01-22 12:20] LABS: Appearance,Urine Clear (Clear); Bilirubin,Urine Negative (Negative); Blood,Urine Negative (Negative); Color,Urine Yellow; Glucose,Urine (UA) Negative (Negative); Hyaline Casts,Urine 1 /lpf (0-2); Ketones,Urine Negative (Negative); Leukocyte Esterase,Urine Large (Negative); Mucus,Urine Rare /hpf; Nitrite,Urine Negative (Negative); PH, Urine 5.5 (5.0-8.0); Protein,Urine Trace (Negative); Specific Gravity,Urine 1.022 (1.001-1.035); Squamous Epithelial Cell,Urine 1 /hpf (0-4); WBC,Urine 18 /hpf (0-5)
[2019-01-22 14:16] LABS: Basophils # (A) 0.1 k/uL (0-0.2); Basophils % (A) 1 %; Eosinophils # (A) 0.5 k/uL (0-0.7); Eosinophils % (A) 5 %; HCT 41.9 % (34.0-46.0); HGB 13.6 gm/dL (11.4-16.0); Hypochromasia Slight; Lymphocytes # (A) 2.1 k/uL (1.0-4.8); Lymphocytes % (A) 18 %; MCH 35.4 pg (25.0-35.0); MCHC 32.5 g/dL (31.0-37.0); Macrocytosis Marked; Mean Platelet Volume 9.9; Monocytes # (A) 0.7 k/uL (0-1.0); Monocytes % (A) 6 %; Neutrophils # (A) 7.7 k/uL (1.3-7.7); Neutrophils % (A) 68 %; Platelet Count 243 k/uL (150-450); RBC 3.84 m/uL (3.80-5.40); RDW 15.1 % (11.5-15.5); WBC 11.4 k/uL (3.8-10.6)
[2019-01-22 17:50] LABS: Total Protein,Urine Random 18.4 mg/dL (0.0-13.5)
[2019-01-22 20:27] LABS: % Iron Saturation 30.86 (12.00-45.00); African American GFR (CKD) 42.4 (60.0-200.0); Albumin 4.5 g/dL (3.80-4.90); Anion Gap 11.9 mmol/L (4.00-12.00); BUN/Creat Ratio 24.62 Ratio (12.00-20.00); Calcium 9.7 mg/dL (8.7-10.3); Carbon Dioxide 25.1 mmol/L (21.6-31.8); Magnesium 2.2 mg/dL (1.5-2.4); Non-African American GFR(CKD) 36.6 (60.0-200.0); Phosphorus 3.2 mg/dL (2.4-5.1); Potassium 4.3 mmol/L (3.5-5.5)
[2019-01-22 21:51] LABS: Creatinine,Urine Random 135.7 mg/dL
== END | disposition home or self-care (01) ==
LOC: LABWHC1 10:43
PROVIDERS: ATTEND Internal Medicine Nephrology
DX: E55.9 Vitamin D deficiency, unspecified (principal); M10.9 Gout, unspecified; N25.81 Secondary hyperparathyroidism of renal origin; D63.1 Anemia in chronic kidney disease; N18.3 Chronic kidney disease, stage 3 (moderate); N39.0 Urinary tract infection, site not specified; R80.9 Proteinuria, unspecified
CPT/HCPCS: 36415; 80048; 81001; 82040; 82306; 82570; 82728; 83540; 83550; 83735; 83970; 84100; 84156; 84550; 85025

== ENCOUNTER 2019-07-14 13:25 | Emergency (ER) | payer MEDICARE ==
[2019-07-14 13:34] VITALS: RESP 18
--- NOTE | 2019-07-14 14:49 | XR ---
EXAMINATION TYPE: XR chest 2V DATE OF EXAM: 07/14/2019 COMPARISON: Chest x-ray March 19, 2019 HISTORY: Chest pain. TECHNIQUE: Frontal and lateral views of the chest are obtained. FINDINGS: There is chronic parenchymal change without suspicious new focal air space opacity, pleura l effusion, or pneumothorax seen. The cardiac silhouette size remains enlarged with atherosclerotic change aortic knob. The osseous structures remain demineralized. Advanced degenerative change bilat eral glenohumeral joints again seen. Exaggerated thoracic kyphosis redemonstrated. IMPRESSION: Chronic changes and cardiomegaly without acute pulmonary process.
[2019-07-14 14:56] LABS: Basophils % (A) 1 %; Eosinophils # (A) 0.3 k/uL (0-0.7); Eosinophils % (A) 4 %; HGB 13.9 gm/dL (11.4-16.0); Lymphocytes # (A) 1.8 k/uL (1.0-4.8); Lymphocytes % (A) 20 %; MCH 34.6 pg (25.0-35.0); MCHC 32.3 g/dL (31.0-37.0); MCV 107.3 fL (80.0-100.0); Macrocytosis Marked; Mean Platelet Volume 11.1; Monocytes # (A) 0.7 k/uL (0-1.0); Monocytes % (A) 7 %; Neutrophils # (A) 6.3 k/uL (1.3-7.7); Neutrophils % (A) 67 %; Platelet Count 261 k/uL (150-450); RBC 4.01 m/uL (3.80-5.40); RDW 15.8 % (11.5-15.5); WBC 9.4 k/uL (3.8-10.6)
--- NOTE | 2019-07-14 14:56 | ED ---
General Adult HPI - General Chief complaint: Extremity Problem,Nontraumatic Stated complaint: swelling in both legs Source: patient, RN notes reviewed Mode of arrival: wheelchair Limitations: no limitations - History of Present Illness Initial comments: 89-year-old female with a past medical history of atrial fibrillation, asthma, DVT, GERD, hyperlipidemia, hypertension presents to the emergency department for a chief complaint of bilateral lower extremity swelling. Patient states that she has a history of leg swelling. States she takes Lasix for this. States that a couple weeks ago her Lasix was reduced because she was urinating while sleeping and did not like that. For about the past week patient has had increased swelling in her lower extremities. States that full legs feel equally swollen. Denies any chest pain shortness of breath.Patient has no other compla ints at this time including shortness of breath, chest pain, abdominal pain, nausea or vomiting, headache, or visual changes. - Related Data Home Medications Medication Instructions Recorded Confirmed Levothyroxine Sodium [Synthroid] 50 mcg PO AC-BRKFST 05/05/14 09/05/17 Atorvastatin Calcium [Lipitor] 40 mg PO HS 10/06/15 09/05/17 Rivaroxaban [Xarelto] 15 mg PO HS 10/06/15 09/05/17 Allopurinol [Zyloprim] 100 mg PO DAILY 09/26/16 09/05/17 Cholecalciferol [Vitamin D3 (25 2,000 unit PO DAILY 09/26/16 09/05/17 Mcg = 1000 Iu)] amLODIPine [Norvasc] 5 mg PO DAILY 09/26/16 09/05/17 cloNIDine 0.2 MG/24HR PATCH 1 patch TRANSDERM PEARSON 09/26/16 09/05/17 [Catapres-TTS] Acetaminophen [Tylenol] 1,000 mg PO Q4-6H PRN 04/04/17 09/05/17 Metoprolol Succinate [Toprol XL] 25 mg PO HS 04/04/17 09/05/17 Cyanocobalamin (Vitamin B-12) 2,000 mcg PO DAILY 08/27/17 09/05/17 [Vitamin B-12] Previous Rx's Medication Instructions Recorded Levofloxacin [Levaquin] 250 mg PO DAILY 2 Days #2 tablet 03/19/19 Allergies Allergy/AdvReac Type Severity Reaction Status Date / Time cephalexin monohydrate Allergy Rash/Hives Verified 09/05/17 12:37 [From Keflex] Penicillins Allergy Swelling Verified 09/05/17 12:37 sulfamethoxazole Allergy Nausea & Verified 09/05/17 12:37 [From Bactrim] Vomiting trimethoprim [From Bactrim] Allergy Nausea & Verified 09/05/17 12:37 Vomiting Review of Systems ROS Statement: Those systems with pertinent positive or pertinent negative responses have been documented in the HPI. ROS Other: All systems not noted in ROS Statement are negative. Past Medical History Past Medical History: Atrial Fibrillation, Asthma, Deep Vein Thrombosis (DVT), GERD/Reflux, Hyperlipidemia, Hypertension, Osteoarthritis (OA), Thyroid Disorder Additional Past Medical History / Comment(s): past falls, uti,hemorrhoids, hammer toes,enlarged heart, glaucoma, sees dr for rt eye (retina),seasonal allergies, ulcer 40 years ago, rosecea. pts grand daughter has factor 5- pt never was tested, uti,djd. History of Any Multi-Drug Resistant Organisms: None Reported Past Surgical History: Bladder Surgery, Tonsillectomy Additional Past Surgical History / Comment(s): blood clot removed rt leg, vein stripping, colonoscopy, bladder suspension, lashay cataracts removed, lashay eye lift sx, Past Anesthesia/Blood Transfusion Reactions: No Reported Reaction Past Psychological History: No Psychological Hx Reported Smoking Status: Never smoker Past Alcohol Use History: None Reported Past Drug Use History: None Reported - Past Family History Mother Additional Family Medical History / Comment(s): mom in childbirth,hemmorraged... pt's granddaughter has factor five Father Family Medical History: Cancer Additional Family Medical History / Comment(s): lung cancer General Exam Limitations: no limitations General appearance: alert, in no apparent distress Head exam: Present: atraumatic, normocephalic, normal inspection Eye exam: Present: normal appearance, PERRL, EOMI. Absent: scleral icterus, conjunctival injection, periorbital swelling ENT exam: Present: normal exam, mucous membranes moist Neck exam: Present: normal inspection, full ROM. Absent: tenderness, meningismus, lymphadenopathy Respiratory exam: Present: normal lung sounds bilaterally. Absent: respiratory distress, wheezes, rales, rhonchi, stridor Cardiovascular Exam: Present: regular rate, normal rhythm, normal heart sounds. Absent: systolic murmur, diastolic murmur, rubs, gallop, clicks GI/Abdominal exam: Present: soft, normal bowel sounds. Absent: distended, tenderness, guarding, rebound, rigid Extremities exam: Present: normal capillary refill (Capillary refill less than 2 seconds, DP pulses 2+ and equal in lower extremities bilaterally.), pedal edema (Patient has 2+ pitting edema and bilateral lower extremity is with mild anterior erythema bilaterally.), other (Sensation intact in lower external nares bilaterally.). Absent: calf tenderness (There is no calf tenderness) Neurological exam: Present: alert Course Vital Signs 07/14/19 13:27 Temperature 97.9 F Pulse Rate 110 H Respiratory 18 Rate Blood Pressure 151/66 O2 Sat by Pulse 96 Oximetry EKG Findings - EKG Comments: EKG Findings:: Atrial fibrillation, ventricular rate 102, QRS duration 84, QTc 440 Medical Decision Making - Medical Decision Making Vitals stable. EKG does show atrial fibrillation with a ventricular rate of 102. Patient does have a history of atrial fibrillation and currently takes Xarelto. On exam patient has some mild edema of the lower extremities. Minimal erythema without any evidence of cellulitis. CBC CMP is unremarkable. There is some slight increase in creatinine however this appears to be chronic for patient. Chest x-ray shows chronic changes. BNP 1200. Troponin negative. Ultrasound shows no evidence for DVT in either leg. Patient was recently decr eased from her hydrochlorothiazide from 25-12.5 dosage. This was decreased and she was urinating frequently at night. I discussed with her that we need to likely increase this dose again back to 25 and she needs to follow-up with her doctor. She will her stockings. She will keep her feet elevated while resting. She'll return for any worsening symptoms. - Lab Data Result diagrams: 07/14/19 14:23 07/14/19 14:23 Lab Results 07/14/19 07/14/19 07/14/19 Range/Units 14:23 14:23 14:23 WBC 9.4 (3.8-10.6) k/uL RBC 4.01 (3.80-5.40) m/uL Hgb 13.9 (11.4-16.0) gm/dL Hct 43.0 (34.0-46.0) % MCV 107.3 H (80.0-100.0) fL MCH 34.6 (25.0-35.0) pg MCHC 32.3 (31.0-37.0) g/dL RDW 15.8 H (11.5-15.5) % Plt Count 261 (150-450) k/uL Neutrophils % 67 % Lymphocytes % 20 % Monocytes % 7 % Eosinophils % 4 % Basophils % 1 % Neutrophils # 6.3 (1.3-7.7) k/uL Lymphocytes # 1.8 (1.0-4.8) k/uL Monocytes # 0.7 (0-1.0) k/uL Eosinophils # 0.3 (0-0.7) k/uL Basophils # 0.0 (0-0.2) k/uL Macrocytosis Marked A PT 10.0 (9.0-12.0) sec INR 1.0 (<1.2) APTT 22.0 (22.0-30.0) sec Sodium 140 (137-145) mmol/L Potassium 3.9 (3.5-5.1) mmol/L Chloride 103 (98-107) mmol/L Carbon Dioxide 26 (22-30) mmol/L Anion Gap 11 mmol/L BUN 30 H (7-17) mg/dL Creatinine 1.51 H (0.52-1.04) mg/dL Est GFR (CKD-EPI)AfAm 35 (>60 ml/min/1.73 sqM) Est GFR (CKD-EPI)NonAf 31 (>60 ml/min/1.73 sqM) Glucose 181 H (74-99) mg/dL Calcium 9.8 (8.4-10.2) mg/dL Magnesium 2.0 (1.6-2.3) mg/dL Total Bilirubin 0.6 (0.2-1.3) mg/dL AST 24 (14-36) U/L ALT 17 (4-34) U/L Alkaline Phosphatase 119 (38-126) U/L Troponin I (0.000-0.034) ng/mL NT-Pro-B Natriuret Pep pg/mL Total Protein 7.5 (6.3-8.2) g/dL Albumin 4.3 (3.5-5.0) g/dL 07/14/19 07/14/19 Range/Units 14:23 14:23 WBC (3.8-10.6) k/uL RBC (3.80-5.40) m/uL Hgb (11.4-16.0) gm/dL Hct (34.0-46.0) % MCV (80.0-100.0) fL MCH (25.0-35.0) pg MCHC (31.0-37.0) g/dL RDW (11.5-15.5) % Plt Count (150-450) k/uL Neutrophils % % Lymphocytes % % Monocytes % % Eosinophils % % Basophils % % Neutrophils # (1.3-7.7) k/uL Lymphocytes # (1.0-4.8) k/uL Monocytes # (0-1.0) k/uL Eosinophils # (0-0.7) k/uL Basophils # (0-0.2) k/uL Macrocytosis PT (9.0-12.0) sec INR (<1.2) APTT (22.0-30.0) sec Sodium (137-145) mmol/L Potassium (3.5-5.1) mmol/L Chloride (98-107) mmol/L Carbon Dioxide (22-30) mmol/L Anion Gap mmol/L BUN (7-17) mg/dL Creatinine (0.52-1.04) mg/dL Est GFR (CKD-EPI)AfAm (>60 ml/min/1.73 sqM) Est GFR (CKD-EPI)NonAf (>60 ml/min/1.73 sqM) Glucose (74-99) mg/dL Calcium (8.4-10.2) mg/dL Magnesium (1.6-2.3) mg/dL Total Bilirubin (0.2-1.3) mg/dL AST (14-36) U/L ALT (4-34) U/L Alkaline Phosphatase (38-126) U/L Troponin I <0.012 (0.000-0.034) ng/mL NT-Pro-B Natriuret Pep 1220 pg/mL Total Protein (6.3-8.2) g/dL Albumin (3.5-5.0) g/dL Disposition Clinical Impression: Peripheral edema Disposition: HOME SELF-CARE Condition: Good Instructions (If sedation given, give patient instructions): Leg Edema (ED) Additional Instructions: Please increase your hydrochlorothiazide back up to 25. Wear compression stockings. Keep legs elevated while resting. Follow up with primary care. Return to the emergency department for any worsening symptoms. Is patient prescribed a controlled substance at d/c from ED?: No Referrals: Melissa Song MD [Primary Care Provider] - 1-2 days Time of Disposition: 16:58
[2019-07-14 14:58] LABS: Albumin 4.3 g/dL (3.5-5.0); Calcium 9.8 mg/dL (8.4-10.2); Potassium 3.9 mmol/L (3.5-5.1); Total Bilirubin 0.6 mg/dL (0.2-1.3); Total Protein 7.5 g/dL (6.3-8.2)
--- NOTE | 2019-07-14 16:41 | US ---
EXAMINATION TYPE: US venous doppler duplex LE DATE OF EXAM: 07/14/2019 4:36 PM COMPARISON: NONE CLINICAL HISTORY: r/o clot. swelling bilaterally SIDE PERFORMED: Bilateral TECHNIQUE: The lower extremity deep venous system is examined utilizing real time linear array sonog sher with graded compression, doppler sonography and color-flow sonography. VESSELS IMAGED: External Iliac Vein (EIV) Common Femoral Vein Deep Femoral Vein Greater Saphenous Vein * Femoral Vein Popliteal Vein Small Saphenous Vein * Proximal Calf Veins (* superficial vessels) Right Leg: Negative for DVT Left Leg: Negative for DVT Grayscale, color doppler, spectral doppler imaging performed of the deep veins of the bilateral lower extremities. There is normal flow, compressibility, vascular waveforms. IMPRESSION: No ultrasound evidence for acute DVT in either lower extremity.
[2019-07-14 17:09] VITALS: BP 132/74; PULSE 94; TEMP 98
== END 2019-07-14 17:36 | disposition home or self-care (01) ==
LOC: EC 13:25
DX: R60.0 Localized edema (principal); I48.91 Unspecified atrial fibrillation; L53.9 Erythematous condition, unspecified; E78.5 Hyperlipidemia, unspecified; I10 Essential (primary) hypertension; M19.90 Unspecified osteoarthritis, unspecified site; E07.9 Disorder of thyroid, unspecified; H40.9 Unspecified glaucoma; Z79.890 Hormone replacement therapy; Z79.01 Long term (current) use of anticoagulants; Z79.899 Other long term (current) drug therapy; Z88.1 Allergy status to other antibiotic agents; Z88.0 Allergy status to penicillin; Z88.2 Allergy status to sulfonamides; Z98.890 Other specified postprocedural states
CPT/HCPCS: 36415; 71046; 80053; 83735; 83880; 84484; 85025; 85610; 85730; 93005; 93970; 99284

== ENCOUNTER 2019-09-17 17:26 | Emergency (ER) | payer MEDICARE ==
[2019-09-17 18:29] LABS: Basophils # (A) 0.1 k/uL (0-0.2); Basophils % (A) 0 %; Eosinophils % (A) 0 %; HCT 40.6 % (34.0-46.0); HGB 12.9 gm/dL (11.4-16.0); Lymphocytes % (A) 6 %; MCH 33.1 pg (25.0-35.0); MCHC 31.7 g/dL (31.0-37.0); MCV 104.5 fL (80.0-100.0); Macrocytosis Moderate; Mean Platelet Volume 11.2; Monocytes # (A) 1.2 k/uL (0-1.0); Monocytes % (A) 7 %; Neutrophils # (A) 14.6 k/uL (1.3-7.7); Neutrophils % (A) 86 %; Platelet Count 219 k/uL (150-450); RBC 3.89 m/uL (3.80-5.40); RDW 15.7 % (11.5-15.5)
[2019-09-17 18:47] LABS: Albumin 4.3 g/dL (3.5-5.0); Calcium 10.2 mg/dL (8.4-10.2); Potassium 3.6 mmol/L (3.5-5.1); Total Protein 7.3 g/dL (6.3-8.2)
[2019-09-17 18:51] LABS: Partial Thromboplastin Time 24.3 sec (22.0-30.0); Prothrombin Time 10.6 sec (9.0-12.0)
--- NOTE | 2019-09-17 19:21 | CT ---
EXAMINATION TYPE: CT brain cspine wo con DATE OF EXAM: 09/17/2019 COMPARISON: CT brain April 16, 2017. CT cervical spine June 03, 2013. HISTORY: Fall injury with headache and neck pain. CT DLP: 1529.4 mGycm. Automated Exposure Control for Dose Reduction was Utilized. TECHNIQUE: CT scan of the head and cervical spine are performed without contrast. FINDINGS: There is no acute intracranial hemorrhage or midline shift identified. Diffuse ventricula r and sulcal prominence redemonstrated. Persistent low-attenuation in the deep and periventricular wh ite matter. The calvarium is intact. Small new left parietal acute scalp hematoma axial image 52. Scl eral calculation bilateral globes redemonstrated. Paranasal sinuses are clear and Cervical spine is visualized in its entirety from C1 through upper thoracic levels and demonstrates s atisfactory alignment without evidence of acute fracture or dislocation. Prevertebral soft tissue ap pears within normal limits. The C1-C2 articulation is within normal limits on the coronal images. Ve rtebral body heights are maintained. Mild to moderate disc space narrowing C5-C6 and C6-C7 levels red emonstrated. Posterior spur disc complexes efface the anterior thecal sac at these levels along with C3-C4 level. Axial images show multilevel uncovertebral facet degenerative changes contributing to mu ltilevel neural foraminal narrowing. Thyroid gland redemonstrates asymmetry of right thyroid lobe wit h scattered bilateral thyroid nodules. Lung apices show no pneumothorax with motion artifact degradat ion. IMPRESSION: 1. There is no acute fracture or dislocation evident in the cervical spine. 2. No acute intracranial hemorrhage or midline shift is seen. New High small left parietal acute scalp hematoma.
--- NOTE | 2019-09-17 19:24 | XR ---
EXAMINATION TYPE: XR hand complete RT DATE OF EXAM: 09/17/2019 CLINICAL HISTORY: Pain after fall injury. TECHNIQUE: Frontal, lateral and oblique images of the right hand are obtained. COMPARISON: None. FINDINGS: Demineralization is present which is noted to lower radiographic sensitivity. There is no acute fracture/dislocation evident in the right hand. Areas of moderate narrowing throughout the PIP and DIP joints are present with mild spurring. Moderate narrowing base of first metacarpal.. The ove rlying soft tissue appears unremarkable. IMPRESSION: There is no acute fracture or dislocation in the right hand.
--- NOTE | 2019-09-17 19:27 | XR ---
EXAMINATION TYPE: XR ribs LT w pa chest xray DATE OF EXAM: 09/17/2019 CLINICAL HISTORY: Chest and left-sided rib pain after fall injury. TECHNIQUE: Single frontal view of the chest is obtained. Frontal and oblique images the left-sided ribs are acquired. COMPARISON: Chest x-ray July 14, 2019. FINDINGS: There is chronic parenchymal changes bilaterally without suspicious new focal air space op acity, pleural effusion, or pneumothorax seen. The cardiac silhouette size remains enlarged with ath erosclerotic thoracic aorta and bilateral hilar prominence suggesting underlying pulmonary artery hyp ertension. The osseous structures remain demineralized. Advanced degenerative changes bilateral gle nohumeral joints again seen. Dedicated images of left-sided ribs show no obvious acute displaced left-sided rib fractures. Slightl y suboptimal evaluation due to underlying demineralization. IMPRESSION: 1. Chronic changes and cardiomegaly without acute pulmonary process. 2. No acute displaced left-sided rib fractures are identified.
[2019-09-17 19:29] LABS: Appearance,Urine Clear (Clear); Bilirubin,Urine Negative (Negative); Blood,Urine Small (Negative); Color,Urine Yellow; Glucose,Urine (UA) Negative (Negative); Hyaline Casts,Urine 1 /lpf (0-2); Ketones,Urine Negative (Negative); Leukocyte Esterase,Urine Moderate (Negative); Mucus,Urine Rare /hpf; Nitrite,Urine Negative (Negative); Protein,Urine Negative (Negative); RBC,Urine 7 /hpf (0-5); Specific Gravity,Urine 1.013 (1.001-1.035); Squamous Epithelial Cell,Urine <1 /hpf (0-4); Urobilinogen,Urine <2.0 mg/dL (<2.0); WBC,Urine 10 /hpf (0-5)
[2019-09-17] MEDS ORDERED: NITROFURANTOIN MONOHYD/M-CRYST 100 MG CAP PO STA (20:19)
--- NOTE | 2019-09-17 20:20 | ED ---
Head Injury HPI - General Chief complaint: Head Injury Stated complaint: Fall Time Seen by Provider: 09/17/19 17:40 Source: patient, EMS Mode of arrival: EMS Limitations: no limitations - History of Present Illness Initial comments: The patient is an 89-year-old female with past medical history of atrial fibrillation on Xarelto who presents emergency Department after she sustained a fall. The patient reports that she was at home when her foot caught the leg the table. She fell approximately 12:30. She hit the left occipital region as well as the left side of her ribs and has bruising to her right hand. She denies losing consciousness. States she was unable to get up and therefore attempted to crawl to the phone. Her son ended up coming home from work early and found her on the ground and called EMS. Patient had been on the floor for tan roximately 4 hours. She denies any shortness of breath. No abdominal pain. Denies headache or visual changes. No neck pain. Patient denies any thoracic or lumbar back pain. No pain in her upper or lower extremities however notable bruising over the right dorsal hand. There are no other alleviating, precipitating or modifying factors - Related Data Home Medications Medication Instructions Recorded Confirmed Atorvastatin Calcium [Lipitor] 40 mg PO HS 10/06/15 09/17/19 Rivaroxaban [Xarelto] 15 mg PO W/SUPPER 10/06/15 09/17/19 Allopurinol [Zyloprim] 200 mg PO DAILY 09/26/16 09/17/19 Cholecalciferol [Vitamin D3 (25 2,000 unit PO DAILY@1500 09/26/16 09/17/19 Mcg = 1000 Iu)] amLODIPine [Norvasc] 5 mg PO HS 09/26/16 09/17/19 cloNIDine 0.2 MG/24HR PATCH 1 patch TRANSDERM PEARSON 09/26/16 09/17/19 [Catapres-TTS] Acetaminophen [Tylenol] 1,000 mg PO Q4-6H PRN 04/04/17 09/17/19 Chlorthalidone 25 mg PO BID 09/17/19 09/17/19 Cyanocobalamin (Vitamin B-12) 1,000 mcg PO DAILY@1500 09/17/19 09/17/19 [Vitamin B-12] Levothyroxine Sodium [Synthroid] 75 mcg PO DAILY 09/17/19 09/17/19 Metoprolol Succinate [Toprol XL] 50 mg PO DAILY 09/17/19 09/17/19 Turmeric Root Extract [Turmeric] 500 mg PO DAILY@1500 09/17/19 09/17/19 Previous Rx's Medication Instructions Recorded Nitrofurantoin Monohyd/M-Cryst 100 mg PO Q12HR #14 cap 09/17/19 [Macrobid] Allergies/Adverse reactions: Allergies Allergy/AdvReac Type Severity Reaction Status Date / Time cephalexin monohydrate Allergy Rash/Hives Verified 09/17/19 19:05 [From Keflex] Penicillins Allergy Swelling Verified 09/17/19 19:05 sulfamethoxazole Allergy Nausea & Verified 09/17/19 19:05 [From Bactrim] Vomiting trimethoprim [From Bactrim] Allergy Nausea & Verified 09/17/19 19:05 Vomiting Review of Systems ROS Statement: Those systems with pertinent positive or pertinent negative responses have been documented in the HPI. ROS Other: All systems not noted in ROS Statement are negative. Past Medical History Past Medical History: Atrial Fibrillation, Asthma, Deep Vein Thrombosis (DVT), GERD/Reflux, Hyperlipidemia, Hypertension, Osteoarthritis (OA), Thyroid Disorder Additional Past Medical History / Comment(s): past falls, uti,hemorrhoids, hammer toes,enlarged heart, glaucoma, sees dr for rt eye (retina),seasonal allergies, ulcer 40 years ago, rosecea. pts grand daughter has factor 5- pt never was tested, uti,djd. History of Any Multi-Drug Resistant Organisms: None Reported Past Surgical History: Bladder Surgery, Tonsillectomy Additional Past Surgical History / Comment(s): blood clot removed rt leg, vein stripping, colonoscopy, bladder suspension, lashay cataracts removed, lashay eye lift sx, Past Anesthesia/Blood Transfusion Reactions: No Reported Reaction Past Psychological History: No Psychological Hx Reported Smoking Status: Never smoker Past Alcohol Use History: None Reported Past Drug Use History: None Reported - Past Family History Mother Additional Family Medical History / Comment(s): mom in childbirth,hemmorraged... pt's granddaughter has factor five Father Family Medical History: Cancer Additional Family Medical History / Comment(s): lung cancer General Exam Limitations: no limitations General appearance: alert, in no apparent distress Head exam: Present: normocephalic, other (hematoma left occiput - 4 x 3 cm. No overlying abrasions or laceration) Eye exam: Present: normal appearance, PERRL, EOMI. Absent: scleral icterus, conjunctival injection, periorbital swelling ENT exam: Present: normal exam, mucous membranes moist Neck exam: Present: normal inspection. Absent: tenderness, meningismus, lymphadenopathy Respiratory exam: Present: normal lung sounds bilaterally, chest wall tenderness (left lateral ribs). Absent: respiratory distress, wheezes, rales, rhonchi, stridor Cardiovascular Exam: Present: regular rate, normal rhythm, normal heart sounds. Absent: systolic murmur, diastolic murmur, rubs, gallop, clicks GI/Abdominal exam: Present: soft, normal bowel sounds. Absent: distended, tenderness, guarding, rebound, rigid Extremities exam: Present: normal inspection, full ROM, normal capillary refill. Absent: tenderness, pedal edema, joint swelling, calf tenderness Back exam: Present: normal inspection Neurological exam: Present: alert, oriented X3, CN II-XII intact Psychiatric exam: Present: normal affect, normal mood Skin exam: Present: warm, dry, intact, other (ecchymosis right dorsal hand). Absent: rash Course Vital Signs 09/17/19 09/17/19 17:36 21:01 Temperature 97.8 F 98.5 F Pulse Rate 92 81 Respiratory 16 16 Rate Blood Pressure 162/90 153/85 O2 Sat by Pulse 96 96 Oximetry Medical Decision Making - Medical Decision Making Upon arrival the patient is placed into room 1. A thorough history and physical exam was performed. Peripheral IV was established. Laboratory studies were con ducted. White blood cell count is 17. Urine is positive for moderate leukocyte esterase with 10 white blood cells. Patient has no additional source for infection per her history. Patient was sent over for a CT of her brain and cervical spine as well as a right hand x-ray and left rib with chest x-ray. CT of the head dentures no acute fracture dislocation the cervical spine. No acute intracranial hemorrhage or midline shift seen. Small left parietal acute scalp hematoma. Right hand x-ray demonstrates no acute fracture dislocation. Patient has no scaphoid pain. X-ray of the left ribs demonstrate chronic changes and cardiac likely without acute pulmonary process. No acute displaced left-sided rib fractures identified. The patient is reevaluated. She feels comfortable being discharged home at this time. Daughter is at bedside and agrees to taking her. The patient will be given up her prescription for Tylenol 3 that she is requesting something stronger than Tylenol at home. I instructed her that this could cause some sedation and increased falls. They are aware of the side effects. Patient is to follow up with her primary care physician in regards to her symptoms. Return to the emergency room for any new or worsening symptoms per patient was in agreement to plan she is discharged in stable condition - Lab Data Result diagrams: 09/17/19 18:23 09/17/19 18:23 Lab Results 09/17/19 09/17/19 09/17/19 Range/Units 18:23 18:23 18:23 WBC 17.0 H (3.8-10.6) k/uL RBC 3.89 (3.80-5.40) m/uL Hgb 12.9 (11.4-16.0) gm/dL Hct 40.6 (34.0-46.0) % MCV 104.5 H (80.0-100.0) fL MCH 33.1 (25.0-35.0) pg MCHC 31.7 (31.0-37.0) g/dL RDW 15.7 H (11.5-15.5) % Plt Count 219 (150-450) k/uL Neutrophils % 86 % Lymphocytes % 6 % Monocytes % 7 % Eosinophils % 0 % Basophils % 0 % Neutrophils # 14.6 H (1.3-7.7) k/uL Lymphocytes # 1.0 (1.0-4.8) k/uL Monocytes # 1.2 H (0-1.0) k/uL Eosinophils # 0.0 (0-0.7) k/uL Basophils # 0.1 (0-0.2) k/uL Macrocytosis Moderate PT 10.6 (9.0-12.0) sec INR 1.0 (<1.2) APTT 24.3 (22.0-30.0) sec Sodium 138 (137-145) mmol/L Potassium 3.6 (3.5-5.1) mmol/L Chloride 102 (98-107) mmol/L Carbon Dioxide 25 (22-30) mmol/L Anion Gap 11 mmol/L BUN 31 H (7-17) mg/dL Creatinine 1.16 H (0.52-1.04) mg/dL Est GFR (CKD-EPI)AfAm 48 (>60 ml/min/1.73 sqM) Est GFR (CKD-EPI)NonAf 42 (>60 ml/min/1.73 sqM) Glucose 136 H (74-99) mg/dL Calcium 10.2 (8.4-10.2) mg/dL Total Bilirubin 1.0 (0.2-1.3) mg/dL AST 32 (14-36) U/L ALT 19 (4-34) U/L Alkaline Phosphatase 127 H (38-126) U/L Creatine Kinase 287 H (30-135) U/L Total Protein 7.3 (6.3-8.2) g/dL Albumin 4.3 (3.5-5.0) g/dL Urine Color Urine Appearance (Clear) Urine pH (5.0-8.0) Ur Specific [place] (1.001-1.035) Urine Protein (Negative) Urine Glucose (UA) (Negative) Urine Ketones (Negative) Urine Blood (Negative) Urine Nitrite (Negative) Urine Bilirubin (Negative) Urine Urobilinogen (<2.0) mg/dL Ur Leukocyte Esterase (Negative) Urine RBC (0-5) /hpf Urine WBC (0-5) /hpf Ur Squamous Epith Cells (0-4) /hpf Hyaline Casts (0-2) /lpf Urine Mucus (None) /hpf 09/17/19 Range/Units 18:51 WBC (3.8-10.6) k/uL RBC (3.80-5.40) m/uL Hgb (11.4-16.0) gm/dL Hct (34.0-46.0) % MCV (80.0-100.0) fL MCH (25.0-35.0) pg MCHC (31.0-37.0) g/dL RDW (11.5-15.5) % Plt Count (150-450) k/uL Neutrophils % % Lymphocytes % % Monocytes % % Eosinophils % % Basophils % % Neutrophils # (1.3-7.7) k/uL Lymphocytes # (1.0-4.8) k/uL Monocytes # (0-1.0) k/uL Eosinophils # (0-0.7) k/uL Basophils # (0-0.2) k/uL Macrocytosis PT (9.0-12.0) sec INR (<1.2) APTT (22.0-30.0) sec Sodium (137-145) mmol/L Potassium (3.5-5.1) mmol/L Chloride (98-107) mmol/L Carbon Dioxide (22-30) mmol/L Anion Gap mmol/L BUN (7-17) mg/dL Creatinine (0.52-1.04) mg/dL Est GFR (CKD-EPI)AfAm (>60 ml/min/1.73 sqM) Est GFR (CKD-EPI)NonAf (>60 ml/min/1.73 sqM) Glucose (74-99) mg/dL Calcium (8.4-10.2) mg/dL Total Bilirubin (0.2-1.3) mg/dL AST (14-36) U/L ALT (4-34) U/L Alkaline Phosphatase (38-126) U/L Creatine Kinase (30-135) U/L Total Protein (6.3-8.2) g/dL Albumin (3.5-5.0) g/dL Urine Color Yellow Urine Appearance Clear (Clear) Urine pH 6.0 (5.0-8.0) Ur Specific [place] 1.013 (1.001-1.035) Urine Protein Negative (Negative) Urine Glucose (UA) Negative (Negative) Urine Ketones Negative (Negative) Urine Blood Small H (Negative) Urine Nitrite Negative (Negative) Urine Bilirubin Negative (Negative) Urine Urobilinogen <2.0 (<2.0) mg/dL Ur Leukocyte Esterase Moderate H (Negative) Urine RBC 7 H (0-5) /hpf Urine WBC 10 H (0-5) /hpf Ur Squamous Epith Cells <1 (0-4) /hpf Hyaline Casts 1 (0-2) /lpf Urine Mucus Rare H (None) /hpf - EKG Data EKG Comments: EKG demonstrates atrial fibrillation with a rate of 87. QRS 24. QTC of 474. No acute ST segment elevations or depressions concerning for ischemic changes Disposition Clinical Impression: Contusion of scalp, Concussion without loss of consciousness, Right-sided chest wall pain, Leukocytosis, Abnormal urine, Afib Disposition: HOME SELF-CARE Condition: Stable Instructions (If sedation given, give patient instructions): Head Injury (ED), Fall Prevention (ED) Additional Instructions: Please follow-up with your primary care doctor within 2-4 days. Return to the emergency department for any new or worsening symptoms Prescriptions: Nitrofurantoin Monohyd/M-Cryst [Macrobid] 100 mg PO Q12HR #14 cap Is patient prescribed a controlled substance at d/c from ED?: No Referrals: Melissa Song MD [Primary Care Provider] - 1-2 days Time of Disposition: 20:20
[2019-09-17] MEDS ORDERED: ACET/COD 300 MG/30 MG STARTER PACK 6 TAB BTL PO STA (21:11)
[2019-09-18 10:23] VITALS: BP 153/85; PULSE 81; RESP 16; TEMP 98.5
== END 2019-09-17 21:16 | disposition home or self-care (01) ==
LOC: EC 17:26
DX: S06.0X0A Concussion without loss of consciousness, initial encounter (principal); S00.03XA Contusion of scalp, initial encounter; I48.91 Unspecified atrial fibrillation; D72.829 Elevated white blood cell count, unspecified; R82.90 Unspecified abnormal findings in urine; S60.221A Contusion of right hand, initial encounter; E78.5 Hyperlipidemia, unspecified; I11.9 Hypertensive heart disease without heart failure; E07.9 Disorder of thyroid, unspecified; Z86.718 Personal history of other venous thrombosis and embolism; Z79.01 Long term (current) use of anticoagulants; Z79.890 Hormone replacement therapy; Z79.899 Other long term (current) drug therapy; Z88.1 Allergy status to other antibiotic agents; Z88.0 Allergy status to penicillin; Z88.2 Allergy status to sulfonamides; W19.XXXA Unspecified fall, initial encounter; Y92.000 Kitchen of unspecified non-institutional (private) residence as the place of occurrence of the external cause; Y93.01 Activity, walking, marching and hiking
CPT/HCPCS: 36415; 70450; 72125; 80053; 81001; 82550; 85025; 85610; 85730; 87086; 93005; 99284

== ENCOUNTER → 2019-11-19 | Outpatient (CLI) | payer MEDICARE ==
[2019-11-19 12:27] LABS: Basophils # (A) 0.1 k/uL (0-0.2); Basophils % (A) 1 %; Eosinophils # (A) 0.8 k/uL (0-0.7); Eosinophils % (A) 7 %; HCT 42.7 % (34.0-46.0); HGB 13.9 gm/dL (11.4-16.0); Lymphocytes # (A) 3.3 k/uL (1.0-4.8); Lymphocytes % (A) 28 %; MCH 34.4 pg (25.0-35.0); MCHC 32.5 g/dL (31.0-37.0); MCV 105.9 fL (80.0-100.0); Macrocytosis Moderate; Mean Platelet Volume 11.6; Monocytes # (A) 0.9 k/uL (0-1.0); Monocytes % (A) 8 %; Neutrophils # (A) 6.5 k/uL (1.3-7.7); Neutrophils % (A) 55 %; Platelet Count 263 k/uL (150-450); RBC 4.03 m/uL (3.80-5.40); RDW 15.8 % (11.5-15.5)
[2019-11-19 12:56] LABS: Appearance,Urine Clear (Clear); Bilirubin,Urine Negative (Negative); Blood,Urine Negative (Negative); Color,Urine Light Yellow; Glucose,Urine (UA) Negative (Negative); Ketones,Urine Negative (Negative); Leukocyte Esterase,Urine Trace (Negative); Nitrite,Urine Negative (Negative); PH, Urine 6.5 (5.0-8.0); Protein,Urine Negative (Negative); RBC,Urine <1 /hpf (0-5); Specific Gravity,Urine 1.008 (1.001-1.035); Urobilinogen,Urine <2.0 mg/dL (<2.0); WBC,Urine 4 /hpf (0-5)
[2019-11-19 12:57] LABS: Protein/Creatinine Ratio,Urine 0.346
[2019-11-19 18:44] LABS: % Iron Saturation 32.58 (12.00-45.00); African American GFR (CKD) 38.5 (60.0-200.0); Anion Gap 12.1 mmol/L (4.00-12.00); BUN/Creat Ratio 22.86 Ratio (12.00-20.00); Carbon Dioxide 25.9 mmol/L (21.6-31.8); Non-African American GFR(CKD) 33.2 (60.0-200.0); Phosphorus 3.5 mg/dL (2.4-5.1); Potassium 3.9 mmol/L (3.5-5.5); Uric Acid 5.2 mg/dL (2.9-7.7)
[2019-11-19 18:52] LABS: Ferritin 206.7 ng/mL (10.0-291.0)
== END | disposition home or self-care (01) ==
LOC: LABWHC1 11:09
PROVIDERS: ATTEND Nurse Practitioner Family
DX: N18.3 Chronic kidney disease, stage 3 (moderate) (principal); E55.9 Vitamin D deficiency, unspecified; N25.81 Secondary hyperparathyroidism of renal origin; M10.9 Gout, unspecified; D63.1 Anemia in chronic kidney disease; N39.0 Urinary tract infection, site not specified; R80.9 Proteinuria, unspecified
CPT/HCPCS: 36415; 80048; 81001; 82306; 82570; 82728; 83540; 83550; 83735; 83970; 84100; 84156; 84550; 85025